=== PATIENT | female | born 1970 | race American Indian/Alaskan Native ===

== ENCOUNTER 2020-01-14 12:36 | Inpatient (IN) | payer OTHER ==
[2020-01-14 13:07] LABS: BASE EXCESS ARTERIAL 7 mmol/L ((-2)-(+3)); BICARBONATE,ARTERIAL 36.3 mmol/L (22-26); O2 DELIVERY DEVICE NASAL CANNULA; O2 SATURATION ARTERIAL 94 % (95-100); PO2 ARTERIAL 86 mmHg (70-100)
[2020-01-14 13:12] LABS: ALLEN TEST pos; O2 FLOW RATE 4; PCO2 ARTERIAL 78 mmHg (35-45)
--- NOTE | 2020-01-14 13:31 | EDM.PDOC ---
ED HPI GENERAL MEDICAL PROBLEM - General Chief Complaint: Respiratory Problem Stated Complaint: [facility] Time Seen by Provider: 01/14/20 12:45 Source of Information: Reports: Patient, EMS, EMS Notes Reviewed, RN, RN Notes Reviewed History Limitations: Reports: Respiratory Distress - History of Present Illness INITIAL COMMENTS - FREE TEXT/NARRATIVE: Patient presents to the ER per [facility] from [facility]. Patient presented to the [facility] today with increased shortness of breath with any kind of exertion or activity. Patient states she felt she had put on some weight. Records at [facility] confirmed she had gained approximately 40 pounds since August 2019. Upon arrival to the [facility] patient was ranging from 65 to 67% on room air, patient was put on nasal cannula at 2 L and was brought up into the 90s. Patient has a history of hyperthyroidism, diabetes type II, asthma, and hyperlipidemia. Patient is insulin-dependent. Today blood glucose was in the 50s, patient was given juice, remained in the 50s, given dextrose tablets. In route to the ER in the ambulance her blood glucose was still in the 50s, patient was given oral dextrose. Upon lab return patient's blood glucose here is 42, being given an amp of D50. Patient admits to having a cough recently along with the shortness of breath and generalized swelling. Patient states symptoms began progressively getting worse approximately 1 week ago. Patient denies history of any heart problems, UT, lung problems, or heart failure. Patient states she does not take a water pill. Patient denies fever, chills, headaches, nausea, vomiting, diarrhea. Main complaint is dyspnea with any kind of exertion and orthopnea. Denies chest pains or palpitations. Patient chews tobacco, but does not smoke cigarettes or drink alcohol. Patient was tested for COVID-[address] [facility] today, and this was negative. Onset: Gradual - Related Data Allergies Allergy/AdvReac Type Severity Reaction Status Date / Time No Known Allergies Allergy Verified 01/14/20 12:45 Home Meds: Home Meds metFORMIN HCl [Metformin HCl] 1,000 mg PO BID 03/18/15 [History] ARIPiprazole [Abilify] 15 mg PO DAILY 01/14/20 [History] Alogliptin Benzoate [Alogliptin] 25 mg PO DAILY 01/14/20 [History] Aspirin [Aspirin EC] 81 mg PO DAILY 01/14/20 [History] Cholecalciferol (Vitamin D3) [Vitamin D3] 25 mcg PO DAILY 01/14/20 [History] Escitalopram Oxalate 20 mg PO DAILY 01/14/20 [History] Gabapentin [Neurontin] 300 mg PO BEDTIME 01/14/20 [History] Insulin Detemir [Levemir Flextouch] 30 unit SQ BID 01/14/20 [History] Levothyroxine Sodium [Synthroid] 100 mcg PO ACBREAKFAST 01/14/20 [History] Melatonin 10 mg PO BEDTIME 01/14/20 [History] Pioglitazone [Actos] 30 mg PO DAILY 01/14/20 [History] Prazosin HCl [Prazosin] 2 mg PO BEDTIME 01/14/20 [History] Prazosin [Minpress] 1 mg PO BEDTIME 01/14/20 [History] Simvastatin 20 mg PO BEDTIME 01/14/20 [History] buPROPion HCL [Bupropion Xl] 150 mg PO DAILY 01/14/20 [History] traZODone HCl [Trazodone HCl] 100 mg PO BEDTIME 01/14/20 [History] Past Medical History HEENT History: Reports: Impaired Vision Cardiovascular History: Reports: Heart Failure, High Cholesterol Respiratory History: Reports: Asthma, Bronchitis, Recurrent 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: Polycystic Ovaries Musculoskeletal History: Reports: Back Pain, Chronic Neurological History: Reports: Neuropathy, Diabetic Psychiatric History: Reports: Depression, OCD, Other (See Below) Other Psychiatric History: insomnia Endocrine/Metabolic History: Reports: Diabetes, Type II, Hypothyroidism, Obesity/BMI 30+ Hematologic History: Reports: Other (See Below) Other Hematologic History: microcytic anemia Social & Family History - Tobacco Use Smoking Status *Q: Current Every Day Smoker Years of Tobacco use: 0 Packs/Tins Daily: 0 - Caffeine Use Caffeine Use: Reports: None - Recreational Drug Use Recreational Drug Use: No ED ROS GENERAL - Review of Systems Review Of Systems: Comprehensive ROS is negative, except as noted in HPI. ED EXAM, GENERAL - Physical Exam Exam: See Below Exam Limited By: Respiratory Distress General Appearance: Moderate Distress, Obese Eye Exam: Bilateral Eye: EOMI, Normal Inspection Ears: Normal External Exam, Hearing Grossly Normal Nose: Normal Inspection Throat/Mouth: Normal Inspection, Normal Voice, No Airway Compromise Head: Atraumatic, Normocephalic Neck: Normal Inspection Respiratory/Chest: Decreased Breath Sounds, Crackles Cardiovascular: Normal Peripheral Pulses, Other (Muffled heart tones) Peripheral Pulses: 2+: Radial (L), Radial (R) GI/Abdominal: Distended, Rigid, Abnormal Bowel Sounds (hypoactive, or difficult to auscultate) (Female) Exam: Deferred Rectal (Female) Exam: Deferred Back Exam: Normal Inspection, Decreased Range of Motion Extremities: Pedal Edema (+3 pitting), Limited Range of Motion Neurological: Alert, Oriented, Normal Cognition, No Motor/Sensory Deficits Psychiatric: Normal Affect, Normal Mood Skin Exam: Warm, Dry, Intact, Normal Color, No Rash Lymphatic: No Adenopathy Course - Vital Signs Last Recorded V/S: Last Vital Signs Temp 97.2 F 01/14/20 12:36 Pulse 81 01/14/20 12:36 Resp 22 H 01/14/20 12:36 BP 123/54 L 01/14/20 12:36 Pulse Ox 95 01/14/20 12:39 - Orders/Labs/Meds Orders: Active Orders 24 hr Category Date Time Status Admission Diagnosis [ADT] Stat ADT 01/14/20 14:56 Ordered Admission Status [Patient Status] [ADT] Routine ADT 01/14/20 14:56 Active EKG Documentation Completion [RC] STAT Care 01/14/20 12:39 Active Peripheral IV Care [RC] . DIRECTED Care 01/14/20 12:42 Active Chest Abdomen Pelvis w Cont [CT] Urgent Exams 01/14/20 13:42 Taken UA RFX TOMA AND CULT IF INDIC [URIN] Stat Lab 01/14/20 12:41 Ordered Sodium Chloride 0.9% [Saline Flush] Med 01/14/20 12:39 Active 10 ml FLUSH ASDIRECTED PRN Peripheral IV Insertion Adult [OM.PC] Stat Oth 01/14/20 12:39 Ordered Medication Orders Sodium Chloride (Saline Flush) 10 ml FLUSH ASDIRECTED PRN PRN Reason: Keep Vein Open Last Admin: 01/14/20 13:43 Dose: 10 ml Documented by: PINKY Labs: Laboratory Tests 01/14/20 01/14/20 01/14/20 Range/Units 12:53 12:53 12:53 PT 12.0 (9.0-12.0) SEC INR 1.3 H (0.9-1.2) D-Dimer, Quantitative 887 H (0-400) ng/mL ABG pH (7.35-7.45) ABG pCO2 (35-45) mmHg ABG pO2 (70-100) mmHg ABG HCO3 (22-26) mmol/L ABG O2 Saturation (95-100) % ABG Base Excess ((-2)-(+3)) mmol/L Anish Test O2 Delivery Device Oxygen Flow Rate Sodium 142 (136-145) mmol/L Potassium 4.1 (3.5-5.1) mmol/L Chloride 101 (98-107) mmol/L Carbon Dioxide 39 H (21-32) mmol/L Anion Gap 6.1 L (7-13) mEq/L BUN 16 (7-18) mg/dL Creatinine 0.78 (0.55-1.02) mg/dL Est Cr Clr Drug Dosing 68.24 mL/min Estimated GFR (MDRD) > 60 BUN/Creatinine Ratio 20.5 (No establ ref range) Glucose 42 L* (74-99) mg/dL POC Glucose (70-105) mg/dl Calcium 8.0 L (8.5-10.1) mg/dL Total Bilirubin 0.8 (0.2-1.0) mg/dL AST 13 L (15-37) U/L ALT 22 (14-59) U/L Alkaline Phosphatase 85 (46-116) U/L Troponin I < 0.017 (0.000-0.056) ng/mL B-Natriuretic Peptide 82 (0-100) pg/ml Total Protein 7.1 (6.4-8.2) g/dL Albumin 3.4 (3.4-5.0) g/dL Globulin 3.7 Albumin/Globulin Ratio 0.9 TSH, Ultra Sensitive 5.73 H (0.36-3.74) uIU/mL 01/14/20 01/14/20 Range/Units 13:00 14:40 PT (9.0-12.0) SEC INR (0.9-1.2) D-Dimer, Quantitative (0-400) ng/mL ABG pH 7.29 L (7.35-7.45) ABG pCO2 78 H* (35-45) mmHg ABG pO2 86 (70-100) mmHg ABG HCO3 36.3 H (22-26) mmol/L ABG O2 Saturation 94 L (95-100) % ABG Base Excess 7 H ((-2)-(+3)) mmol/L Anish Test pos O2 Delivery Device Nasal cannula Oxygen Flow Rate 4 Sodium (136-145) mmol/L Potassium (3.5-5.1) mmol/L Chloride (98-107) mmol/L Carbon Dioxide (21-32) mmol/L Anion Gap (7-13) mEq/L BUN (7-18) mg/dL Creatinine (0.55-1.02) mg/dL Est Cr Clr Drug Dosing mL/min Estimated GFR (MDRD) BUN/Creatinine Ratio (No establ ref range) Glucose (74-99) mg/dL POC Glucose 87 (70-105) mg/dl Calcium (8.5-10.1) mg/dL Total Bilirubin (0.2-1.0) mg/dL AST (15-37) U/L ALT (14-59) U/L Alkaline Phosphatase (46-116) U/L Troponin I (0.000-0.056) ng/mL B-Natriuretic Peptide (0-100) pg/ml Total Protein (6.4-8.2) g/dL Albumin (3.4-5.0) g/dL Globulin Albumin/Globulin Ratio TSH, Ultra Sensitive (0.36-3.74) uIU/mL Meds: Medications Generic Name Dose Route Start Last Admin Trade Name Freq PRN Reason Stop Dose Admin Sodium Chloride 10 ml 01/14/20 12:39 01/14/20 13:43 Saline Flush FLUSH 10 ml ASDIRECTED PRN Administration Keep Vein Open Discontinued Medications Generic Name Dose Route Start Last Admin Trade Name Freq PRN Reason Stop Dose Admin Dextrose/Water 50 ml 01/14/20 13:37 01/14/20 13:43 Dextrose 50% In Water IVPUSH 01/14/20 13:38 50 ml ONETIME ONE Administration Iopamidol 100 ml 01/14/20 13:43 01/14/20 14:35 Isovue-370 (76%) IVPUSH 01/14/20 13:44 100 ml ONETIME ONE Administration - Re-Assessments/Exams Free Text/Narrative Re-Assessment/Exam: 01/14/20 15:05 Dr. Pierce here to evaluate the patient. He agreed to admit the patient for observation. Departure - Departure Time of Disposition: 15:03 Disposition: Refer to Observation Condition: Fair Clinical Impression: Hypoxia Edema Qualifiers: Edema type: generalized Qualified Code(s): R60.1 - Generalized edema - Discharge Information *PRESCRIPTION DRUG MONITORING PROGRAM REVIEWED*: No *COPY OF PRESCRIPTION DRUG MONITORING REPORT IN PATIENT ALYSSA: No Forms: ED Department Discharge Sepsis Event Note (ED) - Evaluation Sepsis Screening Result: No Definite Risk - Focused Exam Vital Signs: Vital Signs Temp Pulse Resp BP Pulse Ox Pulse Ox 01/14/20 12:39 95 01/14/20 12:36 97.2 F 81 22 H 123/54 L 90 L - My Orders Last 24 Hours: My Active Orders 01/14/20 12:39 EKG Documentation Completion [RC] STAT Sodium Chloride 0.9% [Saline Flush] 10 ml FLUSH ASDIRECTED PRN Peripheral IV Insertion Adult [OM.PC] Stat 01/14/20 12:41 UA RFX TOMA AND CULT IF INDIC [URIN] Stat 01/14/20 12:42 Peripheral IV Care [RC] . DIRECTED 01/14/20 13:42 Chest Abdomen Pelvis w Cont [CT] Urgent 01/14/20 14:56 Admission Diagnosis [ADT] Stat Admission Status [Patient Status] [ADT] Routine - Assessment/Plan Last 24 Hours: My Active Orders 01/14/20 12:39 EKG Documentation Completion [RC] STAT Sodium Chloride 0.9% [Saline Flush] 10 ml FLUSH ASDIRECTED PRN Peripheral IV Insertion Adult [OM.PC] Stat 01/14/20 12:41 UA RFX TOMA AND CULT IF INDIC [URIN] Stat 01/14/20 12:42 Peripheral IV Care [RC] . DIRECTED 01/14/20 13:42 Chest Abdomen Pelvis w Cont [CT] Urgent 01/14/20 14:56 Admission Diagnosis [ADT] Stat Admission Status [Patient Status] [ADT] Routine
[2020-01-14 13:35] LABS: ANION GAP 6.1 mEq/L (7-13); CHLORIDE,CL 101 mmol/L (98-107); SODIUM,NA 142 mmol/L (136-145)
[2020-01-14] MEDS ORDERED: 50% Dextrose in Water 50 ML Syringe IVPUSH ONE (13:37)
[2020-01-14] MEDS: Sodium Chloride 0.9% 10 ML Syringe FLUSH PRN (13:43)
[2020-01-14] MEDS ORDERED: Iopamidol 755 Mg/ML 100 ML Bottle IVPUSH ONE (13:43)
[2020-01-14] MEDS ORDERED: 50% Dextrose in Water 50 ML Syringe IVPUSH PRN (15:20)
[2020-01-14] MEDS ORDERED: Ondansetron 4 MG Tab.DIS PO PRN (15:25)
[2020-01-14] MEDS ORDERED: Acetaminophen 325 MG Tab PO PRN (15:25)
--- NOTE | 2020-01-14 15:35 | PCM.HP ---
H&P History of Present Illness - General Date of Service: 01/14/20 Admit Problem/Dx: Admission Diagnosis/Problem Admission Diagnosis/Problem Edema Source of Information: Patient, Provider - History of Present Illness Initial Comments - Free Text/Narative: 50-year-old with a history of hypothyroidism, diabetes, depression. The patient presented to [facility]. She was noted to have about 40 pound weight gain in the past few months. She was noted to have massive edema, shortness of breath with activities. Denies chest pain. She was noted to have hypoglycemia, repeated hypoglycemia treatment was given. The patient was sent to the emergency room She denies current shortness of breath. No chest pain. No abdominal pain. She feels her abdomen is significantly larger than before. The swelling has been present for months, involving all extremities, trunk. - Related Data Allergies/Adverse Reactions: Allergies Allergy/AdvReac Type Severity Reaction Status Date / Time No Known Allergies Allergy Verified 01/14/20 12:45 Home Medications: Home Meds metFORMIN HCl [Metformin HCl] 1,000 mg PO BID 03/18/15 [History] ARIPiprazole [Abilify] 15 mg PO DAILY 01/14/20 [History] Alogliptin Benzoate [Alogliptin] 25 mg PO DAILY 01/14/20 [History] Aspirin [Aspirin EC] 81 mg PO DAILY 01/14/20 [History] Cholecalciferol (Vitamin D3) [Vitamin D3] 25 mcg PO DAILY 01/14/20 [History] Escitalopram Oxalate 20 mg PO DAILY 01/14/20 [History] Gabapentin [Neurontin] 300 mg PO BEDTIME 01/14/20 [History] Insulin Detemir [Levemir Flextouch] 30 unit SQ BID 01/14/20 [History] Levothyroxine Sodium [Synthroid] 100 mcg PO ACBREAKFAST 01/14/20 [History] Melatonin 10 mg PO BEDTIME 01/14/20 [History] Pioglitazone [Actos] 30 mg PO DAILY 01/14/20 [History] Prazosin HCl [Prazosin] 2 mg PO BEDTIME 01/14/20 [History] Prazosin [Minpress] 1 mg PO BEDTIME 01/14/20 [History] Simvastatin 20 mg PO BEDTIME 01/14/20 [History] buPROPion HCL [Bupropion Xl] 150 mg PO DAILY 01/14/20 [History] traZODone HCl [Trazodone HCl] 100 mg PO BEDTIME 01/14/20 [History] Past Medical History HEENT History: Reports: Impaired Vision Cardiovascular History: Reports: Heart Failure, High Cholesterol Respiratory History: Reports: Asthma, Bronchitis, Recurrent 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: Polycystic Ovaries Musculoskeletal History: Reports: Back Pain, Chronic Neurological History: Reports: Neuropathy, Diabetic Psychiatric History: Reports: Depression, OCD, Other (See Below) Other Psychiatric History: insomnia Endocrine/Metabolic History: Reports: Diabetes, Type II, Hypothyroidism, Obesity/BMI 30+ Hematologic History: Reports: Other (See Below) Other Hematologic History: microcytic anemia Social & Family History - Tobacco Use Smoking Status *Q: Current Every Day Smoker Years of Tobacco use: 0 Packs/Tins Daily: 0 - Caffeine Use Caffeine Use: Reports: None - Recreational Drug Use Recreational Drug Use: No H&P Review of Systems - Review of Systems: Review Of Systems: See Below General: Denies: Fever, Chills Pulmonary: Reports: Shortness of Breath. Denies: Wheezing, Pleuritic Chest Pain Cardiovascular: Reports: Dyspnea on Exertion, Edema. Denies: Chest Pain, Syncope Gastrointestinal: Denies: Abdominal Pain Psychiatric: Denies: Confusion Exam - Exam Exam: See Below - Vital Signs Vital Signs: Last Vital Signs Temp 97.2 F 01/14/20 12:36 Pulse 81 01/14/20 12:36 Resp 22 H 01/14/20 12:36 BP 123/54 L 01/14/20 12:36 Pulse Ox 95 01/14/20 12:39 Weight: 348 lb - Exam Quality Assessment: Supplemental Oxygen General: Alert, Oriented Neck: Supple Lungs: Normal Respiratory Effort, Decreased Breath Sounds Cardiovascular: Regular Rate, Regular Rhythm GI/Abdominal Exam: Normal Bowel Sounds, Soft, Other (Massively obese) Extremities: Pedal Edema Skin: Warm Neuro Extensive - Mental Status: Alert, Oriented x3, Normal Mood/Affect Psychiatric: Alert, Normal Affect, Normal Mood - Patient Data Lab Results Last 24 hrs: Laboratory Results - last 24 hr 01/14/20 01/14/20 01/14/20 Range/Units 12:53 12:53 12:53 PT 12.0 (9.0-12.0) SEC INR 1.3 H (0.9-1.2) D-Dimer, Quantitative 887 H (0-400) ng/mL ABG pH (7.35-7.45) ABG pCO2 (35-45) mmHg ABG pO2 (70-100) mmHg ABG HCO3 (22-26) mmol/L ABG O2 Saturation (95-100) % ABG Base Excess ((-2)-(+3)) mmol/L Anish Test O2 Delivery Device Oxygen Flow Rate Sodium 142 (136-145) mmol/L Potassium 4.1 (3.5-5.1) mmol/L Chloride 101 (98-107) mmol/L Carbon Dioxide 39 H (21-32) mmol/L Anion Gap 6.1 L (7-13) mEq/L BUN 16 (7-18) mg/dL Creatinine 0.78 (0.55-1.02) mg/dL Est Cr Clr Drug Dosing 68.24 mL/min Estimated GFR (MDRD) > 60 BUN/Creatinine Ratio 20.5 (No establ ref range) Glucose 42 L* (74-99) mg/dL POC Glucose (70-105) mg/dl Calcium 8.0 L (8.5-10.1) mg/dL Total Bilirubin 0.8 (0.2-1.0) mg/dL AST 13 L (15-37) U/L ALT 22 (14-59) U/L Alkaline Phosphatase 85 (46-116) U/L Troponin I < 0.017 (0.000-0.056) ng/mL B-Natriuretic Peptide 82 (0-100) pg/ml Total Protein 7.1 (6.4-8.2) g/dL Albumin 3.4 (3.4-5.0) g/dL Globulin 3.7 Albumin/Globulin Ratio 0.9 TSH, Ultra Sensitive 5.73 H (0.36-3.74) uIU/mL 01/14/20 01/14/20 Range/Units 13:00 14:40 PT (9.0-12.0) SEC INR (0.9-1.2) D-Dimer, Quantitative (0-400) ng/mL ABG pH 7.29 L (7.35-7.45) ABG pCO2 78 H* (35-45) mmHg ABG pO2 86 (70-100) mmHg ABG HCO3 36.3 H (22-26) mmol/L ABG O2 Saturation 94 L (95-100) % ABG Base Excess 7 H ((-2)-(+3)) mmol/L Anish Test pos O2 Delivery Device Nasal cannula Oxygen Flow Rate 4 Sodium (136-145) mmol/L Potassium (3.5-5.1) mmol/L Chloride (98-107) mmol/L Carbon Dioxide (21-32) mmol/L Anion Gap (7-13) mEq/L BUN (7-18) mg/dL Creatinine (0.55-1.02) mg/dL Est Cr Clr Drug Dosing mL/min Estimated GFR (MDRD) BUN/Creatinine Ratio (No establ ref range) Glucose (74-99) mg/dL POC Glucose 87 (70-105) mg/dl Calcium (8.5-10.1) mg/dL Total Bilirubin (0.2-1.0) mg/dL AST (15-37) U/L ALT (14-59) U/L Alkaline Phosphatase (46-116) U/L Troponin I (0.000-0.056) ng/mL B-Natriuretic Peptide (0-100) pg/ml Total Protein (6.4-8.2) g/dL Albumin (3.4-5.0) g/dL Globulin Albumin/Globulin Ratio TSH, Ultra Sensitive (0.36-3.74) uIU/mL Result Diagrams: 01/14/20 12:53 - Problem List (1) Acute hypercapnic respiratory failure SNOMED Code(s): 993081813 ICD Code: J96.02 - ACUTE RESPIRATORY FAILURE WITH HYPERCAPNIA Status: Acute Current Visit: Yes (2) Diabetes SNOMED Code(s): 70776060 ICD Code: E11.9 - TYPE 2 DIABETES MELLITUS WITHOUT COMPLICATIONS Status: A cute Current Visit: Yes (3) Hypothyroidism SNOMED Code(s): 28150820 ICD Code: E03.9 - HYPOTHYROIDISM, UNSPECIFIED Status: Acute Current Visit: Yes (4) Depression SNOMED Code(s): 53542670 ICD Code: F32.9 - MAJOR DEPRESSIVE DISORDER, SINGLE EPISODE, UNSPECIFIED Status: Acute Current Visit: Yes (5) Morbid obesity SNOMED Code(s): 089736861 ICD Code: E66.01 - MORBID (SEVERE) OBESITY DUE TO EXCESS CALORIES Status: Acute Current Visit: Yes (6) Edema SNOMED Code(s): 015202453, 445762111 ICD Code: R60.9 - EDEMA, UNSPECIFIED Status: Acute Current Visit: No Qualifiers: Edema type: generalized Qualified Code(s): R60.1 - Generalized edema (7) Hypoxia SNOMED Code(s): 740767285 ICD Code: R09.02 - HYPOXEMIA Status: Acute Current Visit: No Problem List Initiated/Reviewed/Updated: Yes Orders Last 24hrs: Active Orders 24 hr Category Date Time Status Admission Diagnosis [ADT] Stat ADT 01/14/20 14:56 Ordered Admission Status [Patient Status] [ADT] Routine ADT 01/14/20 14:56 Active Antiembolic Devices [RC] PER UNIT ROUTINE Care 01/14/20 15:26 Ordered Blood Glucose Check, Bedside [RC] UPON Care 01/14/20 15:29 Ordered EKG Documentation Completion [RC] STAT Care 01/14/20 12:39 Active Glucose [Blood Glucose Check, Bedside] [RC] QIDACANDBED Care 01/14/20 15:19 Ordered Oxygen Therapy [RC] PRN Care 01/14/20 15:26 Ordered Peripheral IV Care [RC] . DIRECTED Care 01/14/20 12:42 Active RT BiPAP/CPAP [RC] ASDIRECTED Care 01/14/20 15:23 Ordered Up With Assistance [RC] ASDIRECTED Care 01/14/20 15:25 Ordered VTE/DVT Education [RC] PER UNIT ROUTINE Care 01/14/20 15:26 Ordered Vital Signs [RC] Q4H Care 01/14/20 15:26 Ordered Consistent Carbohydrate Diet [DIET] Diet 01/14/20 Dinner Ordered Chest Abdomen Pelvis w Cont [CT] Urgent Exams 01/14/20 13:42 Taken Echo Comp wo Cont [US] Routine Exams 01/15/20 08:00 Ordered BASIC METABOLIC PANEL,BMP [CHEM] AM Lab 01/15/20 05:15 Ordered CBC WITH AUTO DIFF [HEME] AM Lab 01/15/20 05:15 Ordered UA RFX TOMA AND CULT IF INDIC [URIN] Stat Lab 01/14/20 12:41 Ordered ARIPiprazole [Abilify] Med 01/15/20 09:00 Ordered 15 mg PO DAILY Acetaminophen [Tylenol] Med 01/14/20 15:25 Ordered 650 mg PO Q4H PRN Aspirin [Halfprin] Med 01/15/20 09:00 Ordered 81 mg PO DAILY Dextrose 50% in Water Med 01/14/20 15:20 Ordered 25 ml IVPUSH Q1H PRN Escitalopram Oxalate [Escitalopram Oxalate] Med 01/15/20 09:00 Ordered 20 mg PO DAILY Furosemide [Lasix] Med 01/14/20 15:30 Ordered 20 mg IVPUSH BID Gabapentin Med 01/14/20 21:00 Ordered 300 mg PO BEDTIME Heparin Sodium Med 01/14/20 22:00 Ordered 5,000 units SUBCUT Q8HR Insulin Glarg,Human.Rec.Analog [LantUS] Med 01/15/20 09:00 Ordered 20 unit SUBCUT BID Insulin Lispro [HumaLOG] Med 01/14/20 16:00 Ordered See Protocol SUBCUT ACBED Levothyroxine [Synthroid] Med 01/15/20 06:00 Ordered 125 mcg PO ACBREAKFAST Melatonin Med 01/14/20 15:27 Ordered 6 mg PO BEDTIME PRN Melatonin [Melatonin] Med 01/14/20 21:00 Ordered 10 mg PO BEDTIME Ondansetron [Zofran ODT] Med 01/14/20 15:25 Ordered 4 mg PO Q4H PRN Prazosin [Minpress] Med 01/14/20 21:00 Ordered 1 mg PO BEDTIME Simvastatin [Simvastatin] Med 01/14/20 21:00 Ordered 20 mg PO BEDTIME Sodium Chloride 0.9% [Saline Flush] Med 01/14/20 12:39 Active 10 ml FLUSH ASDIRECTED PRN buPROPion [Wellbutrin XL] Med 01/15/20 09:00 Ordered 150 mg PO DAILY traZODone HCl Med 01/14/20 21:00 Ordered 100 mg PO BEDTIME Antiembolic Hose [OM.PC] Per Unit Routine Oth 01/14/20 15:26 Ordered Peripheral IV Insertion Adult [OM.PC] Stat Oth 01/14/20 12:39 Ordered Resuscitation Status Routine Resus Stat 01/14/20 15:25 Ordered Medication Orders Acetaminophen (Tylenol) 650 mg PO Q4H PRN PRN Reason: Pain (Mild 1-3)/fever Aspirin (Halfprin) 81 mg PO DAILY [place] Bupropion HCl (Wellbutrin Xl) 150 mg PO DAILY [place]INGOTN Dextrose/Water (Dextrose 50% In Water) 25 ml IVPUSH Q1H PRN PRN Reason: blood sugar <70 Furosemide (Lasix) 20 mg IVPUSH BID [place] Heparin Sodium (Porcine) (Heparin Sodium) 5,000 units SUBCUT Q8HR REMINGTNO Insulin Glargine (Lantus) 20 unit SUBCUT BID [place]INTGON Insulin Human Lispro (Humalog) 0 unit SUBCUT ACBED [place]; Protocol Levothyroxine Sodium (Synthroid) 125 mcg PO ACBREAKFAST [place] Melatonin (Melatonin) 6 mg PO BEDTIME PRN PRN Reason: Sleep Non-Formulary Medication (Aripiprazole [Abilify]) 15 mg PO DAILY [place] Non-Formulary Medication (Escitalopram Oxalate [Escitalopram Oxalate]) 20 mg PO DAILY [place] Non-Formulary Medication (Gabapentin) 300 mg PO BEDTIME [place] Non-Formulary Medication (Melatonin [Melatonin]) 10 mg PO BEDTIME [place] Non-Formulary Medication (Prazosin [Minpress]) 1 mg PO BEDTIME [place] Non-Formulary Medication (Simvastatin [Simvastatin]) 20 mg PO BEDTIME [place] Non-Formulary Medication (Trazodone Hcl) 100 mg PO BEDTIME [place] Ondansetron HCl (Zofran Odt) 4 mg PO Q4H PRN PRN Reason: nausea, able to take PO Sodium Chloride (Saline Flush) 10 ml FLUSH ASDIRECTED PRN PRN Reason: Keep Vein Open Last Admin: 01/14/20 13:43 Dose: 10 ml Documented by: PINKY Assessment/Plan Comment:: 50-year-old with a history of hypothyroidism, diabetes, depression. The patient presented to [facility]. She was noted to have about 40 pound weight gain in the past few months. She was noted to have massive edema, shortness of breath with activities. Denies chest pain. She was noted to have hypoglycemia, repeated hypoglycemia treatment was given. The patient was sent to the emergency room She denies current shortness of breath. No chest pain. No abdominal pain. She feels her abdomen is significantly larger than before. The swelling has been present for months, involving all extremities, trunk. Massive edema involving lower extremities, trunk Well start diuretics Start IV Lasix twice a day Obtain echocardiogram in the morning CT chest and abdomen is pending Diabetes Hypoglycemia An amp of D50 given in the ER Follow blood sugars Hold Levemir now and resume with decreased dose from tomorrow morning Hold metformin, pioglitazone Supplemental insulin and hypoglycemia protocol as needed Hypothyroidism Uncontrolled Increase thyroid medication, increase levothyroxine from 100-125 g daily Acute hypoxemic, hypercarbic respiratory failure Likely secondary to morbid obesity, fluid overload Supplement oxygen as needed BiPAP for now Depression Continue Abilify, bupropion, escitalopram, trazodone DVT prophylaxis with subcutaneous heparin
--- NOTE | 2020-01-14 15:47 | CT ---
EXAMINATION: Chest Abdomen Pelvis w Cont SEX: Female AGE: 50 years CLINICAL HISTORY: 50-year-old 348 pound diabetic female with "fluid overload". BNP 82. Serum D-dimer 887. Scan technique: Volume acquisition of data from the chest, abdomen and pelvis obtained without oral contrast but during the intravenous infusion of 100 cc nonionic Isovue 370 contrast at 5 cc/s via injector (CT PE protocol) while patient was lying supine on the Siemens multislice scanner [place], [place]. All data archived in the PACS system for storage, reformatting axial/sagittal/coronal planes and study. Interpretation: Abnormal. 1. Diminutive thorax (relative to body habitus). Small bibasilar, dependent, subpulmonic pleural effusions. 2. Large heart. Small pericardial effusion. Mild pulmonary vascular congestion with cephalization of flow but no current signs of alveolar edema. 3. No lung mass or significant hilar/mediastinal lymphadenopathy. No focal lobar infiltrate or atelectasis. 4. No intraluminal filling defect (thrombus) identified in the pulmonary artery circulation. No focal oligemia. 5. Abnormal (extensive) subcutaneous edema i.e. anasarca. 6. Cholecystectomy clip RUQ. Large liver. No intrahepatic mass or dilatation intra/extrahepatic biliary ducts. Stomach, spleen, pancreas and adrenal glands unremarkable. Subtle "dirty" mesenteric fat. No ascites. 7. No pelvic or abdominal mass lesion, mesenteric or retroperitoneal lymphadenopathy, signs of mechanical bowel obstruction, or free intraperitoneal air. Normal midline uterus. No fluid dependent cul-de-sac. 8. Symmetric small but normal reniform size/configuration of the kidneys. No renal cortical mass, nephrolithiasis or signs of obstructive uropathy. Normal midline urinary bladder. 9. Normal caliber aortoiliac vessels. Lordotic lumbar spine unremarkable. CONCLUSION: Large heart; pulmonary vascular engorgement; bibasal pleural effusions; enlarged liver; and, anasarca i.e all indications of probable heart failure. Clinical? Cholecystectomy. No current evidence of pulmonary embolism or infarct. No sign of primary or metastatic malignancy. No mechanical bowel obstruction.
[2020-01-14] MEDS: Furosemide 40 MG/4 ML VIAL IVPUSH SCH (16:39)
[2020-01-14] MEDS ORDERED: Insulin Lispro 100 Units/ML 3 ML Vial SUBCUT SCH (18:00)
[2020-01-14] MEDS ORDERED: Melatonin 3 MG Tab PO PRN (21:00)
[2020-01-14] MEDS ORDERED: traZODone 50 MG Tab PO SCH (21:00)
[2020-01-14] MEDS ORDERED: Simvastatin 10 MG Tab PO SCH (21:00)
[2020-01-14] MEDS ORDERED: Melatonin 3 MG Tab PO SCH (21:00)
[2020-01-14] MEDS ORDERED: Insulin Glarg,Human.Rec.Analog 100 Unit/ML SUBCUT SCH ×2 (21:00)
[2020-01-14] MEDS ORDERED: Gabapentin 300 MG Cap PO SCH (21:00)
[2020-01-14] MEDS ORDERED: GABAPENTIN 300 MG PO SCH (21:00)
[2020-01-14] MEDS: LEVEMIR SUBCUT SCH (21:33)
[2020-01-14] MEDS: TRAZODONE 100 MG PO SCH (21:35)
[2020-01-14] MEDS: MELATONIN 10 MG PO SCH (21:35)
[2020-01-14] MEDS: GABAPENTIN 300 MG PO SCH (21:36)
[2020-01-14] MEDS: SIMVASTATIN 20 MG PO SCH (21:37)
[2020-01-14] MEDS: NOVOLOG SUBCUT SCH (21:38)
[2020-01-14] MEDS: Heparin Sodium 5,000 Units/ML Vial SUBCUT SCH (21:53)
[2020-01-15] MEDS: Heparin Sodium 5,000 Units/ML Vial SUBCUT SCH ×3 (06:05→21:26)
[2020-01-15] MEDS: Levothyroxine 125 MCG Tab PO SCH (06:05)
[2020-01-15 07:07] LABS: ANION GAP 3.5 mEq/L (7-13); CHLORIDE,CL 101 mmol/L (98-107); SODIUM,NA 141 mmol/L (136-145)
[2020-01-15] MEDS: NOVOLOG SUBCUT SCH ×4 (08:18→21:18)
[2020-01-15] MEDS: Aspirin 81 MG Tab.EC PO SCH (08:26)
[2020-01-15] MEDS: ESCITALOPRAM 20 MG PO SCH (08:27)
[2020-01-15] MEDS: buPROPion 150 MG Tab.ER PO SCH (08:28)
[2020-01-15] MEDS: Furosemide 40 MG/4 ML VIAL IVPUSH SCH ×2 (08:29→14:26)
[2020-01-15] MEDS: Sodium Chloride 0.9% 10 ML Syringe FLUSH PRN ×2 (08:29→14:26)
[2020-01-15] MEDS: LEVEMIR SUBCUT SCH ×2 (08:30→21:21)
[2020-01-15] MEDS ORDERED: Insulin Glarg,Human.Rec.Analog 100 Unit/ML SUBCUT SCH (09:00)
[2020-01-15] MEDS ORDERED: ESCITALOPRAM 20 MG PO SCH (09:00)
[2020-01-15] MEDS ORDERED: buPROPion 150 MG Tab.ER PO SCH (09:00)
[2020-01-15] MEDS ORDERED: Escitalopram 10 MG Tab PO SCH (09:00)
[2020-01-15] MEDS ORDERED: Aspirin 81 MG Tab.EC PO SCH (09:00)
--- NOTE | 2020-01-15 10:55 | PN ---
DATE: 01/15/2020 HISTORY OF PRESENT ILLNESS: Ms. Sue Storey is a 50-year-old female with medical history significant for hypertension, type 2 diabetes mellitus, hypothyroidism, admitted with acute respiratory failure with hypoxia, hypercapnia, and noted to be in acute congestive heart failure exacerbation with generalized anasarca. For the last 24 hours, the patient was started on IV Lasix, after which her symptoms seems to be slightly improved. She continued to be on nasal cannula oxygen. She continues to have dyspnea on exertion. No chest pain. No abdominal pain. No nausea. No vomiting. No diarrhea. REVIEW OF SYSTEMS: Cardiovascular, respiratory, gastrointestinal, neurology, constitutional were all evaluated and were negative except for the above-said notes. PHYSICAL EXAMINATION: Vital Signs: Temperature of 97.7, pulse of 72, blood pressure 137/69, respiratory rate of 22, saturating at 97% on 3 L of oxygen. General Appearance: The patient is well oriented to time, place, and person. Follows commands spontaneously. Cardiovascular System: S1, S2 heard with normal intensity. No gallops. Respiratory System: Mild crepitations at the base. No wheeze. Abdomen: Soft. Bowel sounds positive. Nontender. No rigidity. Extremities: 2+ edema noted in bilateral lower extremities. MEDICATIONS: Reviewed. Continue with aspirin 81 mg daily, Wellbutrin 150 mg daily, Lasix changed to 40 mg IV twice a day, levothyroxine 125 mcg daily, simvastatin 20 mg daily, Levemir twice a day. LABORATORY DATA: Sodium 141, potassium 4.5, chloride 41, BUN 13, creatinine 0.6. ASSESSMENT: 1. Acute congestive heart failure. 2. Acute hypoxic hypercapnic respiratory failure. 3. Hypothyroidism. 4. Diabetes mellitus. PLAN: 1. Acute congestive heart failure. We will order for a 2D echocardiogram to determine if it is systolic versus diastolic dysfunction. The patient was started on Lasix 20 q.12 hourly. We will increase the dose to 40 mg q.12 hourly for better diuresis. We will closely monitor the patient. Try to avoid any hypotensive episodes. 2. Acute respiratory failure. The patient was noted to have acute hypoxic hypercapnic respiratory failure mainly from pulmonary venous congestion, improving with dialysis. Continue supplemental oxygen to maintain a saturation 95%. 3. Type 2 diabetes mellitus. The patient was noted to be hypoglycemic, requiring D50. We will use insulin as needed. Hold her metformin and pioglitazone. Check her fingersticks with each meal. Have her on correction dose insulin if needed. Avoid any hypoglycemic episodes. 4. DVT prophylaxis. We will have her on Lovenox for DVT prophylaxis. [facility] /[id number]
[2020-01-15] MEDS: GABAPENTIN 300 MG PO SCH (21:00)
[2020-01-15] MEDS: SIMVASTATIN 20 MG PO SCH (21:01)
[2020-01-15] MEDS: TRAZODONE 100 MG PO SCH (21:02)
[2020-01-15] MEDS: MELATONIN 10 MG PO SCH (21:04)
[2020-01-16] MEDS: Levothyroxine 125 MCG Tab PO SCH (06:22)
[2020-01-16] MEDS: Heparin Sodium 5,000 Units/ML Vial SUBCUT SCH ×3 (06:23→22:04)
[2020-01-16 07:09] LABS: ANION GAP 2.3 mEq/L (7-13); CHLORIDE,CL 99 mmol/L (98-107); SODIUM,NA 140 mmol/L (136-145)
[2020-01-16] MEDS: Furosemide 40 MG/4 ML VIAL IVPUSH SCH ×3 (08:27→22:09)
[2020-01-16] MEDS: NOVOLOG SUBCUT SCH ×4 (08:27→22:07)
[2020-01-16] MEDS: buPROPion 150 MG Tab.ER PO SCH (08:28)
[2020-01-16] MEDS: Aspirin 81 MG Tab.EC PO SCH (08:28)
[2020-01-16] MEDS: ESCITALOPRAM 20 MG PO SCH (08:29)
[2020-01-16] MEDS: LEVEMIR SUBCUT SCH ×2 (08:30→22:02)
[2020-01-16] MEDS ORDERED: Lactulose Soln 10 GM/15 ML 30 ML UD Cup PO PRN (09:47)
--- NOTE | 2020-01-16 09:54 | PCM.PN ---
- General Info Date of Service: 01/16/20 Subjective Update: feeling better moderate sob, improved since admission, stilll on oxygen, no associated cp good uo but wght did not change since yesterday - Review of Systems General: Denies: Fever, Weakness Pulmonary: Reports: Shortness of Breath Cardiovascular: Denies: Chest Pain, Palpitations Gastrointestinal: Denies: Abdominal Pain Genitourinary: Denies: Dysuria - Patient Data Vitals - Most Recent: Last Vital Signs Temp 98.1 F 01/16/20 07:51 Pulse 79 01/16/20 07:51 Resp 18 01/16/20 07:51 BP 128/49 L 01/16/20 07:51 Pulse Ox 90 L 01/16/20 07:51 Weight - Most Recent: 350 lb 11.2 oz I&O - Last 24 Hours: Intake & Output 01/15/20 01/16/20 01/16/20 22:59 06:59 14:59 Intake Total 500 420 230 Output Total 1200 Balance -700 420 230 Lab Results Last 24 Hours: Laboratory Results - last 24 hr 01/15/20 01/15/20 01/15/20 Range/Units 10:59 17:08 21:10 WBC (5.0-10.0) 10^3/uL RBC (4.2-5.4) 10^6/uL Hgb (12.0-16.0) g/dL Hct (37.0-47.0) % MCV (80-100) fL MCH (27.0-34.0) pg MCHC (33.0-35.0) g/dL Plt Count (150-450) 10^3/uL Sodium (136-145) mmol/L Potassium (3.5-5.1) mmol/L Chloride (98-107) mmol/L Carbon Dioxide (21-32) mmol/L Anion Gap (7-13) mEq/L BUN (7-18) mg/dL Creatinine (0.55-1.02) mg/dL Est Cr Clr Drug Dosing mL/min Estimated GFR (MDRD) Glucose (74-99) mg/dL POC Glucose 181 H 155 H 153 H (70-105) mg/dl Calcium (8.5-10.1) mg/dL Magnesium (1.8-2.4) mg/dL B-Natriuretic Peptide (0-100) pg/ml 01/16/20 01/16/20 01/16/20 Range/Units 06:31 06:31 07:33 WBC 6.5 (5.0-10.0) 10^3/uL RBC 4.64 (4.2-5.4) 10^6/uL Hgb 12.2 (12.0-16.0) g/dL Hct 42.2 (37.0-47.0) % MCV 90.9 (80-100) fL MCH 26.3 L (27.0-34.0) pg MCHC 28.9 L (33.0-35.0) g/dL Plt Count 168 (150-450) 10^3/uL Sodium 140 (136-145) mmol/L Potassium 4.3 (3.5-5.1) mmol/L Chloride 99 (98-107) mmol/L Carbon Dioxide 43 H* (21-32) mmol/L Anion Gap 2.3 L (7-13) mEq/L BUN 13 (7-18) mg/dL Creatinine 0.73 (0.55-1.02) mg/dL Est Cr Clr Drug Dosing 72.92 mL/min Estimated GFR (MDRD) > 60 Glucose 125 H (74-99) mg/dL POC Glucose 126 H (70-105) mg/dl Calcium 8.0 L (8.5-10.1) mg/dL Magnesium 1.9 (1.8-2.4) mg/dL B-Natriuretic Peptide 271 H (0-100) pg/ml Charli Results Last 24 Hours: Microbiology 01/14/20 17:21 Urine Culture - Final Urine, Clean Catch Escherichia Coli Med Orders - Current: Current Medications Acetaminophen (Tylenol) 650 mg PO Q4H PRN PRN Reason: Pain (Mild 1-3)/fever Aspirin (Halfprin) 81 mg PO DAILY [facility] Last Admin: 01/16/20 08:28 Dose: 81 mg Documented by: Bupropion HCl (Wellbutrin Xl) 150 mg PO DAILY [facility] Last Admin: 01/16/20 08:28 Dose: 150 mg Documented by: Dextrose/Water (Dextrose 50% In Water) 25 ml IVPUSH Q1H PRN PRN Reason: blood sugar <70 Furosemide (Lasix) 40 mg IVPUSH Q8H [facility] Heparin Sodium (Porcine) (Heparin Sodium) 5,000 units SUBCUT Q8HR [facility] Last Admin: 01/16/20 06:23 Dose: 5,000 units Documented by: Lactulose (Cephulac) 20 gm PO BID PRN PRN Reason: Constipation Levothyroxine Sodium (Levothyroxine) 125 mcg PO ACBREAKFAST [facility] Last Admin: 01/16/20 06:22 Dose: 125 mcg Documented by: (Aripiprazole [ Abilify] 15 Mg) Own Med* 15 mg PO DAILY [facility] Last Admin: 01/16/20 08:29 Dose: 15 mg Documented by: (Prazosin [Minpress] (1 Mg) Own Med*) 1 mg PO BEDTIME [facility] Last Admin: 01/15/20 21:03 Dose: 1 mg Documented by: Novolog Own Med* 0 each SUBCUT WITHMEALSANDBED [facility]; Protocol Last Admin: 01/16/20 08:27 Dose: Not Given Documented by: Simvastatin 20mg Own (Med*) 0 each PO BEDTIME [facility] Last Admin: 01/15/20 21:01 Dose: 1 each Documented by: Trazodone 100mg Own (Med*) 0 each PO BEDTIME [facility] Last Admin: 01/15/20 21:02 Dose: 1 each Documented by: Levemir Pen Own Med (*) 0 each SUBCUT BID [facility] Last Admin: 01/16/20 08:30 Dose: 1 each Documented by: Escitalopram 20mg (Own Med*) 0 each PO DAILY [facility] Last Admin: 01/16/20 08:29 Dose: 1 each Documented by: Gabapentin 300mg (Own Med*) 0 each PO BEDTIME [facility] Last Admin: 01/15/20 21:00 Dose: 0.5 each Documented by: Ondansetron HCl (Zofran Odt) 4 mg PO Q4H PRN PRN Reason: nausea, able to take PO Melatonin 10mg Own (Med*) 0 each PO BEDTIME [facility] Last Admin: 01/15/20 21:04 Dose: 1 each Documented by: Senna/Docusate Sodium (Senna Plus) 1 tab PO BID [facility] Sodium Chloride (Saline Flush) 10 ml FLUSH ASDIRECTED PRN PRN Reason: Keep Vein Open Last Admin: 01/15/20 14:26 Dose: 10 ml Documented by: Discontinued Medications Aspirin (Halfprin) 81 mg PO DAILY [facility] Bupropion HCl (Wellbutrin Xl) 150 mg PO DAILY [facility] Dextrose/Water (Dextrose 50% In Water) 50 ml IVPUSH ONETIME ONE Stop: 01/14/20 13:38 Last Admin: 01/14/20 13:43 Dose: 50 ml Documented by: Escitalopram Oxalate (Lexapro) 20 mg PO DAILY [facility] Furosemide (Lasix) 20 mg IVPUSH BIDDIURETIC [facility] Last Admin: 01/15/20 08:29 Dose: 20 mg Documented by: Furosemide (Lasix) 40 mg IVPUSH BIDDIURETIC [facility] Last Admin: 01/16/20 08:27 Dose: 40 mg Documented by: Gabapentin (Neurontin) 300 mg PO BEDTIME [facility] Insulin Glargine (Lantus) 30 unit SUBCUT BID [facility] Insulin Glargine (Lantus) 20 unit SUBCUT BID [facility] Insulin Glargine (Lantus) 10 unit SUBCUT BID [facility] Insulin Human Lispro (Humalog) 0 unit SUBCUT WITHMEALSANDBED [facility]; Protocol Last Admin: 01/14/20 18:35 Dose: Not Given Documented by: Iopamidol (Isovue-370 (76%)) 100 ml IVPUSH ONETIME ONE Stop: 01/14/20 13:44 Last Admin: 01/14/20 14:35 Dose: 100 ml Documented by: Melatonin (Melatonin) 10.5 mg PO BEDTIME [facility] Melatonin (Melatonin) 6 mg PO BEDTIME PRN PRN Reason: Sleep Escitalopram 20mg (Own Med) 0 each PO DAILY [facility] Gabapentin 300mg (Own Med*) 0 each PO BEDTIME [facility] Simvastatin (Zocor) 20 mg PO BEDTIME [facility] Trazodone HCl (Trazodone) 100 mg PO BEDTIME [facility] - Exam Quality Assessment: Supplemental Oxygen General: Alert, Oriented Neck: Supple Lungs: Normal Respiratory Effort, Decreased Breath Sounds Cardiovascular: Regular Rate, Regular Rhythm GI/Abdominal Exam: Normal Bowel Sounds, Soft, Non-Tender Extremities: Pedal Edema, Other (Massive edema) Psy/Mental Status: Alert, Normal Affect, Normal Mood Sepsis Event Note - Evaluation Sepsis Screening Result: No Definite Risk - Focused Exam Vital Signs: Vital Signs Temp Pulse Resp BP BP Pulse Ox 01/16/20 07:51 98.1 F 79 18 128/49 L 90 L 01/15/20 23:28 98.2 F 80 20 136/64 95 Date Exam was Performed: 01/16/20 Time Exam was Performed: 09:54 - Problem List & Annotations (1) Acute hypercapnic respiratory failure SNOMED Code(s): 762711682 Code(s): J96.02 - ACUTE RESPIRATORY FAILURE WITH HYPERCAPNIA Status: Acute Current Visit: Yes (2) Diabetes SNOMED Code(s): 70513573 Code(s): E11.9 - TYPE 2 DIABETES MELLITUS WITHOUT COMPLICATIONS Status: Acute Current Visit: Yes (3) Hypothyroidism SNOMED Code(s): 88774157 Code(s): E03.9 - HYPOTHYROIDISM, UNSPECIFIED Status: Acute Current Visit: Yes (4) Depression SNOMED Code(s): 77216246 Code(s): F32.9 - MAJOR DEPRESSIVE DISORDER, SINGLE EPISODE, UNSPECIFIED Status: Acute Current Visit: Yes (5) Morbid obesity SNOMED Code(s): 473481251 Code(s): E66.01 - MORBID (SEVERE) OBESITY DUE TO EXCESS CALORIES Status: Acute Current Visit: Yes (6) Edema SNOMED Code(s): 309802297, 375044167 Code(s): R60.9 - EDEMA, UNSPECIFIED Status: Acute Current Visit: No Qualifiers: Edema type: generalized Qualified Code(s): R60.1 - Generalized edema (7) Hypoxia SNOMED Code(s): 371496063 Code(s): R09.02 - HYPOXEMIA Status: Acute Current Visit: No - Problem List Review Problem List Initiated/Reviewed/Updated: Yes - My Orders Last 24 Hours: My Active Orders 01/15/20 09:00 ARIPiprazole [Abilify] 15 mg PO DAILY Aspirin [Halfprin] 81 mg PO DAILY Non-Formulary Medication [NF Drug] 0 each PO DAILY buPROPion [Wellbutrin XL] 150 mg PO DAILY 01/16/20 09:47 Lactulose [Cephulac] 20 gm PO BID PRN 01/16/20 10:00 Docusate Sodium/Sennosides [Senna Plus] 1 tab PO BID 01/16/20 14:00 Furosemide [Lasix] 40 mg IVPUSH Q8H cephALEXin [Keflex] 500 mg PO TID - Plan Plan:: 50-year-old with a history of hypothyroidism, diabetes, depression. The patient presented to [facility]. She was noted to have about 40 pound weight gain in the past few months. She was noted to have massive edema, shortness of breath with activities. Denies chest pain. She was noted to have hypoglycemia, repeated hypoglycemia treatment was given. The patient was sent to the emergency room Massive edema involving lower extremities, trunk Started Lasix, weight did not change significantly Increase Lasix dose Could not obtain echocardiogram due to size On CT the patient was noted to have cardiomegaly This is likely acute on chronic diastolic congestive heart failure Diabetes Hypoglycemia An amp of D50 given in the ER Follow blood sugars Resumed Levemir Hold metformin, pioglitazone Supplemental insulin and hypoglycemia protocol as needed Hypothyroidism Uncontrolled Increase thyroid medication, increase levothyroxine from 100 to 125 g daily Acute hypoxemic, hypercarbic respiratory failure Likely secondary to morbid obesity, fluid overload Supplement oxygen as needed Taper oxygen as possible Stop BiPAP Consider sleep apnea evaluation as outpatient Depression Continue Abilify, bupropion, escitalopram, trazodone DVT prophylaxis with subcutaneous heparin
[2020-01-16] MEDS: Potassium Chloride 10 MEQ Tab.ER PO SCH (10:27)
[2020-01-16] MEDS: Cephalexin 500 MG Cap PO SCH ×3 (10:28→21:44)
[2020-01-16] MEDS: SIMVASTATIN 20 MG PO SCH (21:44)
[2020-01-16] MEDS: TRAZODONE 100 MG PO SCH (21:45)
[2020-01-16] MEDS: MELATONIN 10 MG PO SCH (21:46)
[2020-01-16] MEDS: GABAPENTIN 300 MG PO SCH (21:53)
[2020-01-16] MEDS: Sodium Chloride 0.9% 10 ML Syringe FLUSH PRN ×2 (22:09→22:16)
[2020-01-17] MEDS: Heparin Sodium 5,000 Units/ML Vial SUBCUT SCH ×3 (06:43→22:23)
[2020-01-17] MEDS: Levothyroxine 125 MCG Tab PO SCH (06:43)
[2020-01-17] MEDS: Sodium Chloride 0.9% 10 ML Syringe FLUSH PRN ×3 (06:45→22:18)
[2020-01-17] MEDS: Furosemide 40 MG/4 ML VIAL IVPUSH SCH ×3 (06:45→22:19)
[2020-01-17] MEDS: NOVOLOG SUBCUT SCH ×4 (07:43→22:13)
[2020-01-17] MEDS: Potassium Chloride 10 MEQ Tab.ER PO SCH (08:34)
[2020-01-17] MEDS: Cephalexin 500 MG Cap PO SCH ×3 (08:34→22:14)
[2020-01-17] MEDS: LEVEMIR SUBCUT SCH ×2 (08:35→22:11)
[2020-01-17] MEDS: Aspirin 81 MG Tab.EC PO SCH (08:35)
[2020-01-17] MEDS: buPROPion 150 MG Tab.ER PO SCH (08:36)
[2020-01-17] MEDS: ESCITALOPRAM 20 MG PO SCH (08:37)
--- NOTE | 2020-01-17 10:44 | PCM.PN ---
- General Info Date of Service: 01/17/20 Admission Dx/Problem (Free Text): Admission Diagnosis/Problem Admission Diagnosis/Problem Edema Subjective Update: feeling better urine output is increased still requireing oxygen supplement moderate sob, improved since admission, no associated cp wght is down 10 pounds since yesterday Functional Status: Reports: Tolerating Diet, Ambulating (difficulty getting up from bed) - Review of Systems Pulmonary: Reports: Shortness of Breath (mild) Cardiovascular: Reports: Edema. Denies: Chest Pain Gastrointestinal: Denies: Abdominal Pain Genitourinary: Denies: Dysuria Neurological: Denies: Confusion, Dizziness Psychiatric: Denies: Confusion - Patient Data Vitals - Most Recent: Last Vital Signs Temp 97.8 F 01/17/20 08:00 Pulse 71 01/17/20 08:00 Resp 22 H 01/17/20 08:00 BP 124/59 L 01/17/20 08:00 Pulse Ox 86 L 01/17/20 08:00 Weight - Most Recent: 340 lb 6.4 oz I&O - Last 24 Hours: Intake & Output 01/16/20 01/17/20 01/17/20 22:59 06:59 14:59 Intake Total 400 Output Total 1100 850 600 Balance 289469 -450 -600 Lab Results Last 24 Hours: Laboratory Results - last 24 hr 01/16/20 01/16/20 01/16/20 Range/Units 11:50 16:46 21:31 POC Glucose 151 H 153 H 141 H (70-105) mg/dl 01/17/20 Range/Units 07:19 POC Glucose 134 H (70-105) mg/dl Charli Results Last 24 Hours: Microbiology 01/14/20 17:21 Urine Culture - Final Urine, Clean Catch Escherichia Coli Med Orders - Current: Current Medications Acetaminophen (Tylenol) 650 mg PO Q4H PRN PRN Reason: Pain (Mild 1-3)/fever Aspirin (Halfprin) 81 mg PO DAILY [facility] Last Admin: 01/17/20 08:35 Dose: 81 mg Documented by: Bupropion HCl (Wellbutrin Xl) 150 mg PO DAILY [facility] Last Admin: 01/17/20 08:36 Dose: 150 mg Documented by: Cephalexin (Keflex) 500 mg PO TID [facility] Last Admin: 01/17/20 08:34 Dose: 500 mg Documented by: Dextrose/Water (Dextrose 50% In Water) 25 ml IVPUSH Q1H PRN PRN Reason: blood sugar <70 Furosemide (Lasix) 40 mg IVPUSH Q8HR [facility] Last Admin: 01/17/20 06:45 Dose: 40 mg Documented by: Heparin Sodium (Porcine) (Heparin Sodium) 5,000 units SUBCUT Q8HR [facility] Last Admin: 01/17/20 06:43 Dose: 5,000 units Documented by: Lactulose (Cephulac) 20 gm PO BID PRN PRN Reason: Constipation Last Admin: 01/16/20 18:15 Dose: 20 gm Documented by: Levothyroxine Sodium (Levothyroxine) 125 mcg PO ACBREAKFAST [facility] Last Admin: 01/17/20 06:43 Dose: 125 mcg Documented by: (Aripiprazole [ Abilify] 15 Mg) Own Med* 15 mg PO DAILY [facility] Last Admin: 01/17/20 08:36 Dose: 15 mg Documented by: (Prazosin [Minpress] (1 Mg) Own Med*) 1 mg PO BEDTIME [facility] Last Admin: 01/16/20 21:46 Dose: 1 mg Documented by: Novolog Own Med* 0 each SUBCUT WITHMEALSANDBED [facility]; Protocol Last Admin: 01/17/20 07:43 Dose: Not Given Documented by: Simvastatin 20mg Own (Med*) 0 each PO BEDTIME [facility] Last Admin: 01/16/20 21:44 Dose: 1 each Documented by: Trazodone 100mg Own (Med*) 0 each PO BEDTIME [facility] Last Admin: 01/16/20 21:45 Dose: 1 each Documented by: Levemir Pen Own Med (*) 0 each SUBCUT BID [facility] Last Admin: 01/17/20 08:35 Dose: 1 each Documented by: Escitalopram 20mg (Own Med*) 0 each PO DAILY [facility] Last Admin: 01/17/20 08:37 Dose: 1 each Documented by: Gabapentin 300mg (Own Med*) 0 each PO BEDTIME [facility] Last Admin: 01/16/20 21:53 Dose: 1 each Documented by: Ondansetron HCl (Zofran Odt) 4 mg PO Q4H PRN PRN Reason: nausea, able to take PO Melatonin 10mg Own (Med*) 0 each PO BEDTIME [facility] Last Admin: 01/16/20 21:46 Dose: 1 each Documented by: Potassium Chloride (Klor-Con 10) 40 meq PO WITHBREAKFAST [facility] Last Admin: 01/17/20 08:34 Dose: 40 meq Documented by: Senna/Docusate Sodium (Senna Plus) 1 tab PO BID [facility] Last Admin: 01/17/20 08:34 Dose: 1 tab Documented by: Sodium Chloride (Saline Flush) 10 ml FLUSH ASDIRECTED PRN PRN Reason: Keep Vein Open Last Admin: 01/17/20 06:51 Dose: 10 ml Documented by: Discontinued Medications Aspirin (Halfprin) 81 mg PO DAILY [facility] Bupropion HCl (Wellbutrin Xl) 150 mg PO DAILY [facility] Dextrose/Water (Dextrose 50% In Water) 50 ml IVPUSH ONETIME ONE Stop: 01/14/20 13:38 Last Admin: 01/14/20 13:43 Dose: 50 ml Documented by: Escitalopram Oxalate (Lexapro) 20 mg PO DAILY [facility] Furosemide (Lasix) 20 mg IVPUSH BIDDIURETIC [facility] Last Admin: 01/15/20 08:29 Dose: 20 mg Documented by: Furosemide (Lasix) 40 mg IVPUSH BIDDIURETIC [facility] Last Admin: 01/16/20 08:27 Dose: 40 mg Documented by: Gabapentin (Neurontin) 300 mg PO BEDTIME [facility] Insulin Glargine (Lantus) 30 unit SUBCUT BID [facility] Insulin Glargine (Lantus) 20 unit SUBCUT BID [facility] Insulin Glargine (Lantus) 10 unit SUBCUT BID [facility] Insulin Human Lispro (Humalog) 0 unit SUBCUT WITHMEALSANDBED [facility]; Protocol Last Admin: 01/14/20 18:35 Dose: Not Given Documented by: Iopamidol (Isovue-370 (76%)) 100 ml IVPUSH ONETIME ONE Stop: 01/14/20 13:44 Last Admin: 01/14/20 14:35 Dose: 100 ml Documented by: Melatonin (Melatonin) 10.5 mg PO BEDTIME [facility] Melatonin (Melatonin) 6 mg PO BEDTIME PRN PRN Reason: Sleep Escitalopram 20mg (Own Med) 0 each PO DAILY [facility] Gabapentin 300mg (Own Med*) 0 each PO BEDTIME [facility] Simvastatin (Zocor) 20 mg PO BEDTIME [facility] Trazodone HCl (Trazodone) 100 mg PO BEDTIME [facility] - Exam General: Alert, Oriented Neck: Supple Lungs: Normal Respiratory Effort, Decreased Breath Sounds Cardiovascular: Regular Rate, Regular Rhythm GI/Abdominal Exam: Normal Bowel Sounds, Soft, Non-Tender, Other (morbidly obese) Extremities: Pedal Edema Skin: Warm, Dry Neurological: No New Focal Deficit Psy/Mental Status: Alert, Normal Affect, Normal Mood Sepsis Event Note - Evaluation Sepsis Screening Result: No Definite Risk - Focused Exam Vital Signs: Vital Signs Temp Pulse Resp BP Pulse Ox 01/17/20 08:00 97.8 F 71 22 H 124/59 L 86 L 01/17/20 00:33 98.7 F 75 20 112/53 L 90 L Date Exam was Performed: 01/17/20 Time Exam was Performed: 10:40 - Problem List & Annotations (1) Acute hypercapnic respiratory failure SNOMED Code(s): 050590111 Code(s): J96.02 - ACUTE RESPIRATORY FAILURE WITH HYPERCAPNIA Status: Acute Current Visit: Yes (2) Diabetes SNOMED Code(s): 72438005 Code(s): E11.9 - TYPE 2 DIABETES MELLITUS WITHOUT COMPLICATIONS Status: Acute Current Visit: Yes (3) Hypothyroidism SNOMED Code(s): 86526556 Code(s): E03.9 - HYPOTHYROIDISM, UNSPECIFIED Status: Acute Current Visit: Yes (4) Depression SNOMED Code(s): 77042318 Code(s): F32.9 - MAJOR DEPRESSIVE DISORDER, SINGLE EPISODE, UNSPECIFIED Status: Acute Current Visit: Yes (5) Morbid obesity SNOMED Code(s): 419599153 Code(s): E66.01 - MORBID (SEVERE) OBESITY DUE TO EXCESS CALORIES Status: Acute Current Visit: Yes (6) Edema SNOMED Code(s): 252168443, 851359290 Code(s): R60.9 - EDEMA, UNSPECIFIED Status: Acute Current Visit: No Qualifiers: Edema type: generalized Qualified Code(s): R60.1 - Generalized edema (7) Hypoxia SNOMED Code(s): 316072132 Code(s): R09.02 - HYPOXEMIA Status: Acute Current Visit: No - Problem List Review Problem List Initiated/Reviewed/Updated: Yes - My Orders Last 24 Hours: My Active Orders 01/16/20 09:47 Lactulose [Cephulac] 20 gm PO BID PRN 01/16/20 10:00 Docusate Sodium/Sennosides [Senna Plus] 1 tab PO BID cephALEXin [Keflex] 500 mg PO TID 01/16/20 11:00 Potassium Chloride [Klor-Con 10] 40 meq PO WITHBREAKFAST 01/16/20 14:00 Furosemide [Lasix] 40 mg IVPUSH Q8HR 01/18/20 05:15 BASIC METABOLIC PANEL,BMP [CHEM] AM - Plan Plan:: 50-year-old with a history of hypothyroidism, diabetes, depression. The patient presented to [facility]. She was noted to have about 40 pound weight gain in the past few months. She was noted to have massive edema, shortness of breath with activities. Denies chest pain. She was noted to have hypoglycemia, repeated hypoglycemia treatment was given. The patient was sent to the emergency room Massive edema involving lower extremities, trunk Started Lasix, weight did not change significantly Increased Lasix dose - continue with current Could not obtain echocardiogram due to size On CT the patient was noted to have cardiomegaly This is likely acute on chronic diastolic congestive heart failure Diabetes Hypoglycemia An amp of D50 given in the ER Follow blood sugars Resumed Levemir Hold metformin, pioglitazone Supplemental insulin and hypoglycemia protocol as needed Hypothyroidism Uncontrolled Increase thyroid medication, increase levothyroxine from 100 to 125 g daily Acute hypoxemic, hypercarbic respiratory failure Likely secondary to morbid obesity, fluid overload Supplement oxygen as needed Taper oxygen as possible off BiPAP Consider sleep apnea evaluation as outpatient Depression Continue Abilify, bupropion, escitalopram, trazodone DVT prophylaxis with subcutaneous heparin
[2020-01-17] MEDS: TRAZODONE 100 MG PO SCH (22:07)
[2020-01-17] MEDS: GABAPENTIN 300 MG PO SCH (22:07)
[2020-01-17] MEDS: SIMVASTATIN 20 MG PO SCH (22:09)
[2020-01-17] MEDS: MELATONIN 10 MG PO SCH (22:09)
[2020-01-18] MEDS: Heparin Sodium 5,000 Units/ML Vial SUBCUT SCH ×3 (06:08→22:05)
[2020-01-18] MEDS: Levothyroxine 125 MCG Tab PO SCH (06:09)
[2020-01-18] MEDS: Sodium Chloride 0.9% 10 ML Syringe FLUSH PRN ×2 (06:12→22:01)
[2020-01-18] MEDS: Furosemide 40 MG/4 ML VIAL IVPUSH SCH ×3 (06:13→22:01)
[2020-01-18 06:26] LABS: CHLORIDE,CL 97 mmol/L (98-107); SODIUM,NA 141 mmol/L (136-145)
[2020-01-18 06:41] LABS: ANION GAP 2.79999 mEq/L (7-13)
[2020-01-18] MEDS: Potassium Chloride 10 MEQ Tab.ER PO SCH (08:58)
[2020-01-18] MEDS: Cephalexin 500 MG Cap PO SCH ×3 (08:59→21:59)
[2020-01-18] MEDS: Aspirin 81 MG Tab.EC PO SCH (08:59)
[2020-01-18] MEDS: buPROPion 150 MG Tab.ER PO SCH (09:00)
[2020-01-18] MEDS: ESCITALOPRAM 20 MG PO SCH (09:00)
[2020-01-18] MEDS: NOVOLOG SUBCUT SCH ×4 (09:01→21:54)
[2020-01-18] MEDS: LEVEMIR SUBCUT SCH ×2 (09:08→21:50)
--- NOTE | 2020-01-18 10:45 | PCM.PN ---
- General Info Date of Service: 01/18/20 Admission Dx/Problem (Free Text): Admission Diagnosis/Problem Admission Diagnosis/Problem Edema Subjective Update: feeling well Has had 2 episodes of nosebleed that resolved on its own, still on nasal cannula oxygen at 3 L/m overnight. urine output is increased moderate sob, improved since admission, no associated cp wght is down another 10 pounds since yesterday - Review of Systems General: Denies: Fever, Weakness Pulmonary: Reports: Shortness of Breath Cardiovascular: Reports: Edema. Denies: Chest Pain Gastrointestinal: Denies: Abdominal Pain Genitourinary: Denies: Dysuria - Patient Data Vitals - Most Recent: Last Vital Signs Temp 96.8 F L 01/18/20 08:00 Pulse 66 01/18/20 08:00 Resp 20 01/18/20 08:00 BP 119/49 L 01/18/20 08:00 Pulse Ox 92 L 01/18/20 08:16 Weight - Most Recent: 330 lb 6.4 oz I&O - Last 24 Hours: Intake & Output 01/17/20 01/18/20 01/18/20 22:59 06:59 14:59 Intake Total 150 390 120 Output Total 2500 1800 300 Balance -2350 -1410 -180 Lab Results Last 24 Hours: Laboratory Results - last 24 hr 01/17/20 01/17/20 01/17/20 Range/Units 11:51 16:50 21:28 Sodium (136-145) mmol/L Potassium (3.5-5.1) mmol/L Chloride (98-107) mmol/L Carbon Dioxide (21-32) mmol/L Anion Gap (7-13) mEq/L BUN (7-18) mg/dL Creatinine (0.55-1.02) mg/dL Est Cr Clr Drug Dosing mL/min Estimated GFR (MDRD) Glucose (74-99) mg/dL POC Glucose 127 H 170 H 146 H (70-105) mg/dl Calcium (8.5-10.1) mg/dL 01/18/20 01/18/20 Range/Units 05:30 07:48 Sodium 141 (136-145) mmol/L Potassium 3.8 (3.5-5.1) mmol/L Chloride 97 L (98-107) mmol/L Carbon Dioxide > 45 H* (21-32) mmol/L Anion Gap 2.60685 L (7-13) mEq/L BUN 12 (7-18) mg/dL Creatinine 0.65 (0.55-1.02) mg/dL Est Cr Clr Drug Dosing 81.89 mL/min Estimated GFR (MDRD) > 60 Glucose 129 H (74-99) mg/dL POC Glucose 137 H (70-105) mg/dl Calcium 7.3 L (8.5-10.1) mg/dL Med Orders - Current: Current Medications Acetaminophen (Tylenol) 650 mg PO Q4H PRN PRN Reason: Pain (Mild 1-3)/fever Aspirin (Halfprin) 81 mg PO DAILY [facility] Last Admin: 01/18/20 08:59 Dose: 81 mg Documented by: Bupropion HCl (Wellbutrin Xl) 150 mg PO DAILY [facility] Last Admin: 01/18/20 09:00 Dose: 150 mg Documented by: Cephalexin (Keflex) 500 mg PO TID [facility] Last Admin: 01/18/20 08:59 Dose: 500 mg Documented by: Dextrose/Water (Dextrose 50% In Water) 25 ml IVPUSH Q1H PRN PRN Reason: blood sugar <70 Furosemide (Lasix) 40 mg IVPUSH Q8HR [facility] Last Admin: 01/18/20 06:13 Dose: 40 mg Documented by: Heparin Sodium (Porcine) (Heparin Sodium) 5,000 units SUBCUT Q8HR [facility] Last Admin: 01/18/20 06:08 Dose: Not Given Documented by: Lactulose (Cephulac) 20 gm PO BID PRN PRN Reason: Constipation Last Admin: 01/16/20 18:15 Dose: 20 gm Documented by: Levothyroxine Sodium (Levothyroxine) 125 mcg PO ACBREAKFAST [facility] Last Admin: 01/18/20 06:09 Dose: 125 mcg Documented by: (Aripiprazole [ Abilify] 15 Mg) Own Med* 15 mg PO DAILY [facility] Last Admin: 01/18/20 09:12 Dose: 15 mg Documented by: (Prazosin [Minpress] (1 Mg) Own Med*) 1 mg PO BEDTIME [facility] Last Admin: 01/17/20 22:15 Dose: 1 mg Documented by: Novolog Own Med* 0 each SUBCUT WITHMEALSANDBED [facility]; Protocol Last Admin: 01/18/20 09:01 Dose: Not Given Documented by: Simvastatin 20mg Own (Med*) 0 each PO BEDTIME [facility] Last Admin: 01/17/20 22:09 Dose: 1 each Documented by: Trazodone 100mg Own (Med*) 0 each PO BEDTIME [facility] Last Admin: 01/17/20 22:07 Dose: 1 each Documented by: Levemir Pen Own Med (*) 0 each SUBCUT BID [facility] Last Admin: 01/18/20 09:08 Dose: 1 each Documented by: Escitalopram 20mg (Own Med*) 0 each PO DAILY [facility] Last Admin: 01/18/20 09:00 Dose: 1 each Documented by: Gabapentin 300mg (Own Med*) 0 each PO BEDTIME [facility] Last Admin: 01/17/20 22:07 Dose: 1 each Documented by: Ondansetron HCl (Zofran Odt) 4 mg PO Q4H PRN PRN Reason: nausea, able to take PO Melatonin 10mg Own (Med*) 0 each PO BEDTIME [facility] Last Admin: 01/17/20 22:09 Dose: 1 each Documented by: Potassium Chloride (Klor-Con 10) 40 meq PO WITHBREAKFAST [facility] Last Admin: 01/18/20 08:58 Dose: 40 meq Documented by: Senna/Docusate Sodium (Senna Plus) 1 tab PO BID [facility] Last Admin: 01/18/20 08:58 Dose: 1 tab Documented by: Sodium Chloride (Saline Flush) 10 ml FLUSH ASDIRECTED PRN PRN Reason: Keep Vein Open Last Admin: 01/18/20 06:12 Dose: 10 ml Documented by: Discontinued Medications Aspirin (Halfprin) 81 mg PO DAILY [facility] Bupropion HCl (Wellbutrin Xl) 150 mg PO DAILY [facility] Dextrose/Water (Dextrose 50% In Water) 50 ml IVPUSH ONETIME ONE Stop: 01/14/20 13:38 Last Admin: 01/14/20 13:43 Dose: 50 ml Documented by: Escitalopram Oxalate (Lexapro) 20 mg PO DAILY [facility] Furosemide (Lasix) 20 mg IVPUSH BIDDIURETIC [facility] Last Admin: 01/15/20 08:29 Dose: 20 mg Documented by: Furosemide (Lasix) 40 mg IVPUSH BIDDIURETIC [facility] Last Admin: 01/16/20 08:27 Dose: 40 mg Documented by: Gabapentin (Neurontin) 300 mg PO BEDTIME [facility] Insulin Glargine (Lantus) 30 unit SUBCUT BID [facility] Insulin Glargine (Lantus) 20 unit SUBCUT BID [facility] Insulin Glargine (Lantus) 10 unit SUBCUT BID [facility] Insulin Human Lispro (Humalog) 0 unit SUBCUT WITHMEALSANDBED [facility]; Protocol Last Admin: 01/14/20 18:35 Dose: Not Given Documented by: Iopamidol (Isovue-370 (76%)) 100 ml IVPUSH ONETIME ONE Stop: 01/14/20 13:44 Last Admin: 01/14/20 14:35 Dose: 100 ml Documented by: Melatonin (Melatonin) 10.5 mg PO BEDTIME [facility] Melatonin (Melatonin) 6 mg PO BEDTIME PRN PRN Reason: Sleep Escitalopram 20mg (Own Med) 0 each PO DAILY [facility] Gabapentin 300mg (Own Med*) 0 each PO BEDTIME [facility] Simvastatin (Zocor) 20 mg PO BEDTIME [facility] Trazodone HCl (Trazodone) 100 mg PO BEDTIME [facility] - Exam Quality Assessment: Supplemental Oxygen General: Alert, Oriented Neck: Supple Lungs: Clear to Auscultation, Normal Respiratory Effort Cardiovascular: Regular Rate, Regular Rhythm GI/Abdominal Exam: Normal Bowel Sounds, Soft, Non-Tender Extremities: Pedal Edema Sepsis Event Note - Evaluation Sepsis Screening Result: No Definite Risk - Focused Exam Vital Signs: Vital Signs Temp Pulse Resp BP Pulse Ox 01/18/20 08:16 92 L 01/18/20 08:00 96.8 F L 66 20 119/49 L 98 01/18/20 04:00 97.6 F 70 20 132/59 L 95 01/17/20 23:15 98.2 F 70 20 141/69 H 95 Date Exam was Performed: 01/18/20 Time Exam was Performed: 10:42 - Problem List & Annotations (1) Acute hypercapnic respiratory failure SNOMED Code(s): 544178303 Code(s): J96.02 - ACUTE RESPIRATORY FAILURE WITH HYPERCAPNIA Status: Acute Current Visit: Yes (2) Diabetes SNOMED Code(s): 97963194 Code(s): E11.9 - TYPE 2 DIABETES MELLITUS WITHOUT COMPLICATIONS Status: Acute Current Visit: Yes (3) Hypothyroidism SNOMED Code(s): 35579735 Code(s): E03.9 - HYPOTHYROIDISM, UNSPECIFIED Status: Acute Current Visit: Yes (4) Depression SNOMED Code(s): 32203489 Code(s): F32.9 - MAJOR DEPRESSIVE DISORDER, SINGLE EPISODE, UNSPECIFIED Status: Acute Current Visit: Yes (5) Morbid obesity SNOMED Code(s): 176912907 Code(s): E66.01 - MORBID (SEVERE) OBESITY DUE TO EXCESS CALORIES Status: Acute Current Visit: Yes (6) Edema SNOMED Code(s): 567822640, 415816639 Code(s): R60.9 - EDEMA, UNSPECIFIED Status: Acute Current Visit: No Qualifiers: Edema type: generalized Qualified Code(s): R60.1 - Generalized edema (7) Hypoxia SNOMED Code(s): 661756037 Code(s): R09.02 - HYPOXEMIA Status: Acute Current Visit: No - Problem List Review Problem List Initiated/Reviewed/Updated: Yes - My Orders Last 24 Hours: My Active Orders 01/19/20 05:15 BASIC METABOLIC PANEL,BMP [CHEM] AM - Plan Plan:: 50-year-old with a history of hypothyroidism, diabetes, depression. The patient presented to [facility]. She was noted to have about 40 pound weight gain in the past few months. She was noted to have massive edema, shortness of breath with activities. Denies chest pain. She was noted to have hypoglycemia, repeated hypoglycemia treatment was given. The patient was sent to the emergency room Continue Massive edema involving lower extremities, trunk Started Lasix, weight did not change significantly Increased Lasix dose - urine output is better- continue with current Could not obtain echocardiogram due to size On CT the patient was noted to have cardiomegaly This is likely acute on chronic diastolic congestive heart failure Diabetes Hypoglycemia An amp of D50 given in the ER Follow blood sugars Resumed Levemir Hold metformin, pioglitazone Supplemental insulin and hypoglycemia protocol as needed Hypothyroidism Uncontrolled Increase thyroid medication, increase levothyroxine from 100 to 125 g daily Acute hypoxemic, hypercarbic respiratory failure Likely secondary to morbid obesity, fluid overload Supplement oxygen as needed Taper oxygen as possible - might need to go home with home oxygen off BiPAP Consider sleep apnea evaluation as outpatient Depression Continue Abilify, bupropion, escitalopram, trazodone DVT prophylaxis with subcutaneous heparin
[2020-01-18] MEDS: SIMVASTATIN 20 MG PO SCH (21:57)
[2020-01-18] MEDS: MELATONIN 10 MG PO SCH (21:57)
[2020-01-18] MEDS: GABAPENTIN 300 MG PO SCH (21:58)
[2020-01-18] MEDS: TRAZODONE 100 MG PO SCH (21:58)
[2020-01-19] MEDS: Levothyroxine 125 MCG Tab PO SCH (05:48)
[2020-01-19] MEDS: Sodium Chloride 0.9% 10 ML Syringe FLUSH PRN ×2 (05:48→13:16)
[2020-01-19] MEDS: Furosemide 40 MG/4 ML VIAL IVPUSH SCH ×3 (05:49→22:05)
[2020-01-19] MEDS: Heparin Sodium 5,000 Units/ML Vial SUBCUT SCH ×3 (05:55→22:04)
[2020-01-19 06:02] LABS: CHLORIDE,CL 94 mmol/L (98-107); SODIUM,NA 141 mmol/L (136-145)
[2020-01-19 06:09] LABS: ANION GAP 5.89999 mEq/L (7-13)
[2020-01-19] MEDS: Potassium Chloride 10 MEQ Tab.ER PO SCH (08:46)
[2020-01-19] MEDS: Cephalexin 500 MG Cap PO SCH ×3 (08:47→22:02)
[2020-01-19] MEDS: buPROPion 150 MG Tab.ER PO SCH (08:48)
[2020-01-19] MEDS: ESCITALOPRAM 20 MG PO SCH (08:49)
[2020-01-19] MEDS: Aspirin 81 MG Tab.EC PO SCH (08:49)
[2020-01-19] MEDS: NOVOLOG SUBCUT SCH ×4 (08:50→23:02)
[2020-01-19] MEDS: LEVEMIR SUBCUT SCH ×2 (08:51→23:01)
--- NOTE | 2020-01-19 10:40 | PCM.PN ---
- General Info Date of Service: 01/19/20 Subjective Update: feeling well urine output is still good moderate sob, improved since admission, no associated cp wght is down another 3 pounds since yesterday on 1-1.5 nc oxygen - Review of Systems General: Denies: Fever, Weakness Pulmonary: Reports: Shortness of Breath Cardiovascular: Reports: Edema. Denies: Chest Pain Gastrointestinal: Denies: Abdominal Pain Genitourinary: Denies: Dysuria - Patient Data Vitals - Most Recent: Last Vital Signs Temp 98.1 F 01/19/20 07:40 Pulse 69 01/19/20 07:40 Resp 18 01/19/20 07:40 BP 112/60 01/19/20 07:40 Pulse Ox 97 01/19/20 07:40 Weight - Most Recent: 327 lb 3.2 oz I&O - Last 24 Hours: Intake & Output 01/18/20 01/19/20 01/19/20 22:59 06:59 14:59 Intake Total 680 350 300 Output Total 300 1550 Balance 380 -1200 300 Lab Results Last 24 Hours: Laboratory Results - last 24 hr 01/18/20 01/18/20 01/18/20 Range/Units 11:29 16:38 20:57 Sodium (136-145) mmol/L Potassium (3.5-5.1) mmol/L Chloride (98-107) mmol/L Carbon Dioxide (21-32) mmol/L Anion Gap (7-13) mEq/L BUN (7-18) mg/dL Creatinine (0.55-1.02) mg/dL Est Cr Clr Drug Dosing mL/min Estimated GFR (MDRD) Glucose (74-99) mg/dL POC Glucose 185 H 164 H 183 H (70-105) mg/dl Calcium (8.5-10.1) mg/dL 01/19/20 01/19/20 Range/Units 05:15 07:46 Sodium 141 (136-145) mmol/L Potassium 3.9 (3.5-5.1) mmol/L Chloride 94 L (98-107) mmol/L Carbon Dioxide > 45 H* (21-32) mmol/L Anion Gap 5.60790 L (7-13) mEq/L BUN 14 (7-18) mg/dL Creatinine 0.79 (0.55-1.02) mg/dL Est Cr Clr Drug Dosing 67.38 mL/min Estimated GFR (MDRD) > 60 Glucose 188 H (74-99) mg/dL POC Glucose 146 H (70-105) mg/dl Calcium 7.3 L (8.5-10.1) mg/dL Med Orders - Current: Current Medications Acetaminophen (Tylenol) 650 mg PO Q4H PRN PRN Reason: Pain (Mild 1-3)/fever Aspirin (Halfprin) 81 mg PO DAILY [facility] Last Admin: 01/19/20 08:49 Dose: 81 mg Documented by: Bupropion HCl (Wellbutrin Xl) 150 mg PO DAILY [facility] Last Admin: 01/19/20 08:48 Dose: 150 mg Documented by: Cephalexin (Keflex) 500 mg PO TID [facility] Last Admin: 01/19/20 08:47 Dose: 500 mg Documented by: Dextrose/Water (Dextrose 50% In Water) 25 ml IVPUSH Q1H PRN PRN Reason: blood sugar <70 Furosemide (Lasix) 40 mg IVPUSH Q8HR [facility] Last Admin: 01/19/20 05:49 Dose: 40 mg Documented by: Heparin Sodium (Porcine) (Heparin Sodium) 5,000 units SUBCUT Q8HR [facility] Last Admin: 01/19/20 05:55 Dose: Not Given Documented by: Lactulose (Cephulac) 20 gm PO BID PRN PRN Reason: Constipation Last Admin: 01/16/20 18:15 Dose: 20 gm Documented by: Levothyroxine Sodium (Levothyroxine) 125 mcg PO ACBREAKFAST [facility] Last Admin: 01/19/20 05:48 Dose: 125 mcg Documented by: (Aripiprazole [ Abilify] 15 Mg) Own Med* 15 mg PO DAILY [facility] Last Admin: 01/19/20 08:47 Dose: 15 mg Documented by: (Prazosin [Minpress] (1 Mg) Own Med*) 1 mg PO BEDTIME [facility] Last Admin: 01/18/20 21:56 Dose: 1 mg Documented by: Novolog Own Med* 0 each SUBCUT WITHMEALSANDBED [facility]; Protocol Last Admin: 01/19/20 08:50 Dose: Not Given Documented by: Simvastatin 20mg Own (Med*) 0 each PO BEDTIME [facility] Last Admin: 01/18/20 21:57 Dose: 1 each Documented by: Trazodone 100mg Own (Med*) 0 each PO BEDTIME [facility] Last Admin: 01/18/20 21:58 Dose: 1 each Documented by: Levemir Pen Own Med (*) 0 each SUBCUT BID [facility] Last Admin: 01/19/20 08:51 Dose: 1 each Documented by: Escitalopram 20mg (Own Med*) 0 each PO DAILY [facility] Last Admin: 01/19/20 08:49 Dose: 1 each Documented by: Gabapentin 300mg (Own Med*) 0 each PO BEDTIME [facility] Last Admin: 01/18/20 21:58 Dose: 1 each Documented by: Ondansetron HCl (Zofran Odt) 4 mg PO Q4H PRN PRN Reason: nausea, able to take PO Melatonin 10mg Own (Med*) 0 each PO BEDTIME [facility] Last Admin: 01/18/20 21:57 Dose: 1 each Documented by: Potassium Chloride (Klor-Con 10) 40 meq PO WITHBREAKFAST [facility] Last Admin: 01/19/20 08:46 Dose: 40 meq Documented by: Senna/Docusate Sodium (Senna Plus) 1 tab PO BID [facility] Last Admin: 01/19/20 08:47 Dose: 1 tab Documented by: Sodium Chloride (Saline Flush) 10 ml FLUSH ASDIRECTED PRN PRN Reason: Keep Vein Open Last Admin: 01/19/20 05:48 Dose: 10 ml Documented by: Discontinued Medications Aspirin (Halfprin) 81 mg PO DAILY [facility] Bupropion HCl (Wellbutrin Xl) 150 mg PO DAILY [facility] Dextrose/Water (Dextrose 50% In Water) 50 ml IVPUSH ONETIME ONE Stop: 01/14/20 13:38 Last Admin: 01/14/20 13:43 Dose: 50 ml Documented by: Escitalopram Oxalate (Lexapro) 20 mg PO DAILY [facility] Furosemide (Lasix) 20 mg IVPUSH BIDDIURETIC [facility] Last Admin: 01/15/20 08:29 Dose: 20 mg Documented by: Furosemide (Lasix) 40 mg IVPUSH BIDDIURETIC [facility] Last Admin: 01/16/20 08:27 Dose: 40 mg Documented by: Gabapentin (Neurontin) 300 mg PO BEDTIME [facility] Insulin Glargine (Lantus) 30 unit SUBCUT BID [facility] Insulin Glargine (Lantus) 20 unit SUBCUT BID [facility] Insulin Glargine (Lantus) 10 unit SUBCUT BID [facility] Insulin Human Lispro (Humalog) 0 unit SUBCUT [facility]MEALSANDBED [facility]; Protocol Last Admin: 01/14/20 18:35 Dose: Not Given Documented by: Iopamidol (Isovue-370 (76%)) 100 ml IVPUSH ONETIME ONE Stop: 01/14/20 13:44 Last Admin: 01/14/20 14:35 Dose: 100 ml Documented by: Melatonin (Melatonin) 10.5 mg PO BEDTIME [facility] Melatonin (Melatonin) 6 mg PO BEDTIME PRN PRN Reason: Sleep Escitalopram 20mg (Own Med) 0 each PO DAILY [facility] Gabapentin 300mg (Own Med*) 0 each PO BEDTIME [facility] Simvastatin (Zocor) 20 mg PO BEDTIME [facility] Trazodone HCl (Trazodone) 100 mg PO BEDTIME [facility] - Exam Quality Assessment: Supplemental Oxygen General: Alert, Oriented Neck: Supple Lungs: Clear to Auscultation, Normal Respiratory Effort Cardiovascular: Regular Rate, Regular Rhythm GI/Abdominal Exam: Normal Bowel Sounds, Soft, Non-Tender, Other (Morbidly obese) Extremities: Pedal Edema, Other (Edema up to trunk) Skin: Warm, Dry Neurological: No New Focal Deficit Psy/Mental Status: Alert, Normal Affect, Normal Mood Sepsis Event Note - Evaluation Sepsis Screening Result: No Definite Risk - Focused Exam Vital Signs: Vital Signs Temp Pulse Resp BP Pulse Ox 01/19/20 07:40 98.1 F 69 18 112/60 97 01/19/20 05:00 98 F 72 20 116/57 L 92 L 01/18/20 23:00 97.6 F 70 20 112/49 L 92 L Date Exam was Performed: 01/19/20 Time Exam was Performed: 10:38 - Problem List & Annotations (1) Acute hypercapnic respiratory failure SNOMED Code(s): 038818486 Code(s): J96.02 - ACUTE RESPIRATORY FAILURE WITH HYPERCAPNIA Status: Acute Current Visit: Yes (2) Diabetes SNOMED Code(s): 45204926 Code(s): E11.9 - TYPE 2 DIABETES MELLITUS WITHOUT COMPLICATIONS Status: Acute Current Visit: Yes (3) Hypothyroidism SNOMED Code(s): 31261571 Code(s): E03.9 - HYPOTHYROIDISM, UNSPECIFIED Status: Acute Current Visit: Yes (4) Depression SNOMED Code(s): 48144031 Code(s): F32.9 - MAJOR DEPRESSIVE DISORDER, SINGLE EPISODE, UNSPECIFIED Status: Acute Current Visit: Yes (5) Morbid obesity SNOMED Code(s): 767048506 Code(s): E66.01 - MORBID (SEVERE) OBESITY DUE TO EXCESS CALORIES Status: Acute Current Visit: Yes (6) Edema SNOMED Code(s): 579343947, 123331173 Code(s): R60.9 - EDEMA, UNSPECIFIED Status: Acute Current Visit: No Qualifiers: Edema type: generalized Qualified Code(s): R60.1 - Generalized edema (7) Hypoxia SNOMED Code(s): 969657221 Code(s): R09.02 - HYPOXEMIA Status: Acute Current Visit: No - Problem List Review Problem List Initiated/Reviewed/Updated: Yes - Plan Plan:: 50-year-old with a history of hypothyroidism, diabetes, depression. The patient presented to [facility]. She was noted to have about 40 pound weight gain in the past few months. She was noted to have massive edema, shortness of breath with activities. Denies chest pain. She was noted to have hypoglycemia, repeated hypoglycemia treatment was given. The patient was sent to the emergency room acute on chronic diastolic congestive heart failure Continue Massive edema involving lower extremities, trunk Started Lasix, weight did not change significantly Increased Lasix dose - urine output is better- continue with current dose Could not obtain echocardiogram due to size On CT the patient was noted to have cardiomegaly Diabetes Hypoglycemia on admission An amp of D50 given in the ER Follow blood sugars Resumed Levemir Hold metformin, pioglitazone Supplemental insulin and hypoglycemia protocol as needed Hypothyroidism Uncontrolled on admission Increase thyroid medication, increase levothyroxine from 100 to 125 g daily Acute hypoxemic, hypercarbic respiratory failure Likely secondary to morbid obesity, fluid overload Supplement oxygen as needed Taper oxygen as possible - might need to go home with home oxygen off BiPAP Consider sleep apnea evaluation as outpatient Depression Continue Abilify, bupropion, escitalopram, trazodone DVT prophylaxis with subcutaneous heparin
[2020-01-19] MEDS: TRAZODONE 100 MG PO SCH (22:04)
[2020-01-19] MEDS: SIMVASTATIN 20 MG PO SCH (22:06)
[2020-01-19] MEDS: MELATONIN 10 MG PO SCH (22:08)
[2020-01-19] MEDS: GABAPENTIN 300 MG PO SCH (23:00)
[2020-01-20] MEDS: Levothyroxine 125 MCG Tab PO SCH (05:49)
[2020-01-20] MEDS: Heparin Sodium 5,000 Units/ML Vial SUBCUT SCH ×2 (05:49→20:26)
[2020-01-20] MEDS: Furosemide 40 MG/4 ML VIAL IVPUSH SCH ×3 (05:49→22:15)
[2020-01-20 06:33] LABS: CHLORIDE,CL 96 mmol/L (98-107); SODIUM,NA 141 mmol/L (136-145)
[2020-01-20 06:38] LABS: ANION GAP 3.79999 mEq/L (7-13)
[2020-01-20] MEDS: Cephalexin 500 MG Cap PO SCH ×3 (08:48→20:26)
[2020-01-20] MEDS: Potassium Chloride 10 MEQ Tab.ER PO SCH (08:48)
[2020-01-20] MEDS: buPROPion 150 MG Tab.ER PO SCH (08:50)
[2020-01-20] MEDS: Aspirin 81 MG Tab.EC PO SCH (08:50)
[2020-01-20] MEDS: ESCITALOPRAM 20 MG PO SCH (08:50)
[2020-01-20] MEDS: NOVOLOG SUBCUT SCH ×4 (08:51→20:31)
[2020-01-20] MEDS: LEVEMIR SUBCUT SCH ×2 (08:52→20:30)
--- NOTE | 2020-01-20 09:44 | PCM.PN ---
- General Info Date of Service: 01/20/20 Admission Dx/Problem (Free Text): Admission Diagnosis/Problem Admission Diagnosis/Problem Edema Subjective Update: feeling well urine output is still good, loosing weight moderate sob, improved since admission, no associated cp has been on 1 lpm nc oxygen overnight - Review of Systems General: Reports: Weakness. Denies: Fever Pulmonary: Reports: Shortness of Breath Cardiovascular: Reports: Edema. Denies: Chest Pain Gastrointestinal: Denies: Abdominal Pain Genitourinary: Denies: Dysuria - Patient Data Vitals - Most Recent: Last Vital Signs Temp 97.2 F 01/20/20 07:53 Pulse 72 01/20/20 07:53 Resp 20 01/20/20 07:53 BP 127/57 L 01/20/20 07:53 Pulse Ox 90 L 01/20/20 07:53 Weight - Most Recent: 320 lb 8 oz I&O - Last 24 Hours: Intake & Output 01/19/20 01/20/20 01/20/20 22:59 06:59 14:59 Intake Total 1465 Output Total 600 300 Balance 865 -300 Lab Results Last 24 Hours: Laboratory Results - last 24 hr 01/19/20 01/19/20 01/19/20 Range/Units 11:57 16:48 20:59 WBC (5.0-10.0) 10^3/uL RBC (4.2-5.4) 10^6/uL Hgb (12.0-16.0) g/dL Hct (37.0-47.0) % MCV (80-100) fL MCH (27.0-34.0) pg MCHC (33.0-35.0) g/dL Plt Count (150-450) 10^3/uL Neut % (Auto) (42.2-75.2) % Lymph % (Auto) (20.5-50.1) % [place] % (Auto) (2-8) % Eos % (Auto) (1.0-3.0) % Baso % (Auto) (0.0-1.0) % Sodium (136-145) mmol/L Potassium (3.5-5.1) mmol/L Chloride (98-107) mmol/L Carbon Dioxide (21-32) mmol/L Anion Gap (7-13) mEq/L BUN (7-18) mg/dL Creatinine (0.55-1.02) mg/dL Est Cr Clr Drug Dosing mL/min Estimated GFR (MDRD) Glucose (74-99) mg/dL POC Glucose 208 H 172 H 211 H (70-105) mg/dl Calcium (8.5-10.1) mg/dL 01/20/20 01/20/20 01/20/20 Range/Units 05:25 05:25 07:49 WBC 5.3 (5.0-10.0) 10^3/uL RBC 4.82 (4.2-5.4) 10^6/uL Hgb 12.7 (12.0-16.0) g/dL Hct 43.1 (37.0-47.0) % MCV 89.4 (80-100) fL MCH 26.3 L (27.0-34.0) pg MCHC 29.5 L (33.0-35.0) g/dL Plt Count 142 L (150-450) 10^3/uL Neut % (Auto) 72.1 (42.2-75.2) % Lymph % (Auto) 11.6 L (20.5-50.1) % [place] % (Auto) 8.8 H (2-8) % Eos % (Auto) 6.9 H (1.0-3.0) % Baso % (Auto) 0.6 (0.0-1.0) % Sodium 141 (136-145) mmol/L Potassium 3.8 (3.5-5.1) mmol/L Chloride 96 L (98-107) mmol/L Carbon Dioxide > 45 H* (21-32) mmol/L Anion Gap 3.65812 L (7-13) mEq/L BUN 13 (7-18) mg/dL Creatinine 0.64 (0.55-1.02) mg/dL Est Cr Clr Drug Dosing 83.17 mL/min Estimated GFR (MDRD) > 60 Glucose 168 H (74-99) mg/dL POC Glucose 158 H (70-105) mg/dl Calcium 7.5 L (8.5-10.1) mg/dL Med Orders - Current: Current Medications Acetaminophen (Tylenol) 650 mg PO Q4H PRN PRN Reason: Pain (Mild 1-3)/fever Aspirin (Halfprin) 81 mg PO DAILY [facility] Last Admin: 01/20/20 08:50 Dose: 81 mg Documented by: Bupropion HCl (Wellbutrin Xl) 150 mg PO DAILY [facility] Last Admin: 01/20/20 08:50 Dose: 150 mg Documented by: Cephalexin (Keflex) 500 mg PO TID [facility] Last Admin: 01/20/20 08:48 Dose: 500 mg Documented by: Dextrose/Water (Dextrose 50% In Water) 25 ml IVPUSH Q1H PRN PRN Reason: blood sugar <70 Furosemide (Lasix) 40 mg IVPUSH Q8HR [facility] Last Admin: 01/20/20 05:49 Dose: 40 mg Documented by: Heparin Sodium (Porcine) (Heparin Sodium) 5,000 units SUBCUT Q8HR [facility] Last Admin: 01/20/20 05:49 Dose: Not Given Documented by: Lactulose (Cephulac) 20 gm PO BID PRN PRN Reason: Constipation Last Admin: 01/16/20 18:15 Dose: 20 gm Documented by: Levothyroxine Sodium (Levothyroxine) 125 mcg PO ACBREAKFAST [facility] Last Admin: 01/20/20 05:49 Dose: 125 mcg Documented by: (Aripiprazole [ Abilify] 15 Mg) Own Med* 15 mg PO DAILY [facility] Last Admin: 01/20/20 08:48 Dose: 15 mg Documented by: (Prazosin [Minpress] (1 Mg) Own Med*) 1 mg PO BEDTIME [facility] Last Admin: 01/19/20 22:07 Dose: 1 mg Documented by: Novolog Own Med* 0 each SUBCUT WITHMEALSANDBED [facility]; Protocol Last Admin: 01/20/20 08:51 Dose: 1 each Documented by: Simvastatin 20mg Own (Med*) 0 each PO BEDTIME [facility] Last Admin: 01/19/20 22:06 Dose: 1 each Documented by: Trazodone 100mg Own (Med*) 0 each PO BEDTIME [facility] Last Admin: 01/19/20 22:04 Dose: 1 each Documented by: Levemir Pen Own Med (*) 0 each SUBCUT BID [facility] Last Admin: 01/20/20 08:52 Dose: 10 each Documented by: Escitalopram 20mg (Own Med*) 0 each PO DAILY [facility] Last Admin: 01/20/20 08:50 Dose: 1 each Documented by: Gabapentin 300mg (Own Med*) 0 each PO BEDTIME [facility] Last Admin: 01/19/20 23:00 Dose: 1 each Documented by: Ondansetron HCl (Zofran Odt) 4 mg PO Q4H PRN PRN Reason: nausea, able to take PO Melatonin 10mg Own (Med*) 0 each PO BEDTIME [facility] Last Admin: 01/19/20 22:08 Dose: 2 each Documented by: Potassium Chloride (Klor-Con 10) 40 meq PO WITHBREAKFAST [facility] Last Admin: 01/20/20 08:48 Dose: 40 meq Documented by: Senna/Docusate Sodium (Senna Plus) 1 tab PO BID [facility] Last Admin: 01/20/20 08:47 Dose: 1 tab Documented by: Sodium Chloride (Saline Flush) 10 ml FLUSH ASDIRECTED PRN PRN Reason: Keep Vein Open Last Admin: 01/19/20 13:16 Dose: 10 ml Documented by: Discontinued Medications Aspirin (Halfprin) 81 mg PO DAILY [facility] Bupropion HCl (Wellbutrin Xl) 150 mg PO DAILY [facility] Dextrose/Water (Dextrose 50% In Water) 50 ml IVPUSH ONETIME ONE Stop: 01/14/20 13:38 Last Admin: 01/14/20 13:43 Dose: 50 ml Documented by: Escitalopram Oxalate (Lexapro) 20 mg PO DAILY [facility] Furosemide (Lasix) 20 mg IVPUSH BIDDIURETIC [facility] Last Admin: 01/15/20 08:29 Dose: 20 mg Documented by: Furosemide (Lasix) 40 mg IVPUSH BIDDIURETIC [facility] Last Admin: 01/16/20 08:27 Dose: 40 mg Documented by: Gabapentin (Neurontin) 300 mg PO BEDTIME [facility] Insulin Glargine (Lantus) 30 unit SUBCUT BID [facility] Insulin Glargine (Lantus) 20 unit SUBCUT BID [facility] Insulin Glargine (Lantus) 10 unit SUBCUT BID [facility] Insulin Human Lispro (Humalog) 0 unit SUBCUT WITHMEALSANDBED [facility]; Protocol Last Admin: 01/14/20 18:35 Dose: Not Given Documented by: Iopamidol (Isovue-370 (76%)) 100 ml IVPUSH ONETIME ONE Stop: 01/14/20 13:44 Last Admin: 01/14/20 14:35 Dose: 100 ml Documented by: Melatonin (Melatonin) 10.5 mg PO BEDTIME [facility] Melatonin (Melatonin) 6 mg PO BEDTIME PRN PRN Reason: Sleep Escitalopram 20mg (Own Med) 0 each PO DAILY [facility] Gabapentin 300mg (Own Med*) 0 each PO BEDTIME [facility] Simvastatin (Zocor) 20 mg PO BEDTIME [facility] Trazodone HCl (Trazodone) 100 mg PO BEDTIME [facility] - Exam Quality Assessment: Supplemental Oxygen General: Alert, Oriented Neck: Supple Lungs: Normal Respiratory Effort, Decreased Breath Sounds Cardiovascular: Regular Rate, Regular Rhythm GI/Abdominal Exam: Normal Bowel Sounds, Soft, Non-Tender Extremities: Pedal Edema (up to trunk) Sepsis Event Note - Evaluation Sepsis Screening Result: No Definite Risk - Focused Exam Vital Signs: Vital Signs Temp Pulse Resp BP Pulse Ox 01/20/20 07:53 97.2 F 72 20 127/57 L 90 L 01/20/20 00:00 97.8 F 76 20 123/51 L 94 L Date Exam was Performed: 01/20/20 Time Exam was Performed: 09:41 - Problem List & Annotations (1) Acute hypercapnic respiratory failure SNOMED Code(s): 408167048 Code(s): J96.02 - ACUTE RESPIRATORY FAILURE WITH HYPERCAPNIA Status: Acute Current Visit: Yes (2) Diabetes SNOMED Code(s): 59482953 Code(s): E11.9 - TYPE 2 DIABETES MELLITUS WITHOUT COMPLICATIONS Status: Acute Current Visit: Yes (3) Hypothyroidism SNOMED Code(s): 97082074 Code(s): E03.9 - HYPOTHYROIDISM, UNSPECIFIED Status: Acute Current Visit: Yes (4) Depression SNOMED Code(s): 39767465 Code(s): F32.9 - MAJOR DEPRESSIVE DISORDER, SINGLE EPISODE, UNSPECIFIED Status: Acute Current Visit: Yes (5) Morbid obesity SNOMED Code(s): 357744211 Code(s): E66.01 - MORBID (SEVERE) OBESITY DUE TO EXCESS CALORIES Status: Acute Current Visit: Yes (6) Edema SNOMED Code(s): 602724176, 233611147 Code(s): R60.9 - EDEMA, UNSPECIFIED Status: Acute Current Visit: No Qualifiers: Edema type: generalized Qualified Code(s): R60.1 - Generalized edema (7) Hypoxia SNOMED Code(s): 658403280 Code(s): R09.02 - HYPOXEMIA Status: Acute Current Visit: No - Problem List Review Problem List Initiated/Reviewed/Updated: Yes - My Orders Last 24 Hours: My Active Orders 01/20/20 09:40 OT Evaluation and Treatment [CONS] Routine PT Evaluation and Treatment [CONS] Routine 01/21/20 05:15 BASIC METABOLIC PANEL,BMP [CHEM] AM - Plan Plan:: 50-year-old with a history of hypothyroidism, diabetes, depression. The patient presented to [facility]. She was noted to have about 40 pound weight gain in the past few months. She was noted to have massive edema, shortness of breath with activities. Denies chest pain. She was noted to have hypoglycemia, repeated hypoglycemia treatment was given. The patient was sent to the emergency room acute on chronic diastolic congestive heart failure Continue Massive edema involving lower extremities, trunk Started Lasix, weight did not change significantly Increased Lasix dose - urine output is good - continue with current dose Could not obtain echocardiogram due to size On CT the patient was noted to have cardiomegaly weakness will have pt/ot eval and treatment Diabetes Hypoglycemia on admission An amp of D50 given in the ER Follow blood sugars Resumed Levemir Hold metformin, pioglitazone Supplemental insulin and hypoglycemia protocol as needed Hypothyroidism Uncontrolled on admission Increase thyroid medication, increase levothyroxine from 100 to 125 g daily Acute hypoxemic, hypercarbic respiratory failure Likely secondary to morbid obesity, fluid overload Supplement oxygen as needed Taper oxygen as possible - might need to go home with home oxygen off BiPAP Consider sleep apnea evaluation as outpatient Depression Continue Abilify, bupropion, escitalopram, trazodone DVT prophylaxis with subcutaneous heparin due to nose bleed decrease to BID will ask swing bed eval, pt/ot
[2020-01-20] MEDS: TRAZODONE 100 MG PO SCH (20:28)
[2020-01-20] MEDS: SIMVASTATIN 20 MG PO SCH (20:28)
[2020-01-20] MEDS: MELATONIN 10 MG PO SCH (20:29)
[2020-01-20] MEDS: GABAPENTIN 300 MG PO SCH (20:31)
[2020-01-20] MEDS: Sodium Chloride 0.9% 10 ML Syringe FLUSH PRN (22:15)
[2020-01-21] MEDS: Levothyroxine 125 MCG Tab PO SCH (05:59)
[2020-01-21] MEDS: Furosemide 40 MG/4 ML VIAL IVPUSH SCH (06:03)
[2020-01-21 07:05] LABS: CHLORIDE,CL 98 mmol/L (98-107); SODIUM,NA 143 mmol/L (136-145)
[2020-01-21 07:09] LABS: ANION GAP 2.7 mEq/L (7-13)
[2020-01-21] MEDS: Potassium Chloride 10 MEQ Tab.ER PO SCH (08:31)
[2020-01-21] MEDS: Cephalexin 500 MG Cap PO SCH (08:32)
[2020-01-21] MEDS: buPROPion 150 MG Tab.ER PO SCH (08:33)
[2020-01-21] MEDS: Aspirin 81 MG Tab.EC PO SCH (08:34)
[2020-01-21] MEDS: NOVOLOG SUBCUT SCH ×2 (08:35→12:15)
[2020-01-21] MEDS: ESCITALOPRAM 20 MG PO SCH (08:37)
[2020-01-21] MEDS: LEVEMIR SUBCUT SCH (08:38)
[2020-01-21] MEDS: Sodium Chloride 0.9% 10 ML Syringe FLUSH PRN (08:44)
[2020-01-21] MEDS ORDERED: Sodium Chloride 0.9% 10 ML Syringe FLUSH PRN (09:57)
[2020-01-21] MEDS: Heparin Sodium 5,000 Units/ML Vial SUBCUT SCH (10:22)
--- NOTE | 2020-01-21 12:04 | PCM.DCSUM1 ---
Discharge Summary - Hospital Course Free Text/Narrative:: 50-year-old with a history of hypothyroidism, diabetes, depression. The patient presented to [facility]. She was noted to have about 40 pound weight gain in the past few months. She was noted to have massive edema, shortness of breath with activities. Denies chest pain. She was noted to have hypoglycemia, repeated hypoglycemia treatment was given. The patient was sent to the emergency room acute on chronic diastolic congestive heart failure Could not obtain echocardiogram due to size On CT the patient was noted to have cardiomegaly Continue Massive edema involving lower extremities, trunk Started Lasix had significant weight loss with IV Lasix Continue oral diuretics and potassium supplement Acute hypoxemic, hypercarbic respiratory failure Likely secondary to morbid obesity, fluid overload Prior to discharge on 20 January the patient underwent walking desaturation study With activity oxygen saturation dropped to 85% and remained above 88% on 3 L nasal cannula oxygen Resting oxygen saturation was 84% on room air, 1 L nasal cannula oxygen brought oxygen saturation up to 90% During the night she also required 1 L nasal cannula oxygen The patient would benefit from portable and stationary oxygen Hopefully when fluid status is improving she will not need further oxygen Expected use of oxygen is 1 month Consider sleep apnea evaluation as outpatient Diabetes Hypoglycemia on admission An amp of D50 given in the ER Resumed long-acting insulin Hold metformin, And resume home regimen Hypothyroidism Uncontrolled on admission Increased thyroid medication, increase levothyroxine from 100 to 125 g daily Depression Continue Abilify, bupropion, escitalopram, trazodone Follow up closely with primary care physician and nephrology Diagnosis: Stroke: No - Discharge Data Discharge Date: 01/21/20 Discharge Disposition: Home, Self-Care 01 Condition: Good - Referral to Home Health Primary Care Physician: Dianelys Treviño NP - Discharge Diagnosis/Problem(s) (1) Acute hypercapnic respiratory failure SNOMED Code(s): 940591125 ICD Code: J96.02 - ACUTE RESPIRATORY FAILURE WITH HYPERCAPNIA Status: Acute Current Visit: Yes (2) Diabetes SNOMED Code(s): 35193584 ICD Code: E11.9 - TYPE 2 DIABETES MELLITUS WITHOUT COMPLICATIONS Status: Acute Current Visit: Yes (3) Hypothyroidism SNOMED Code(s): 93052369 ICD Code: E03.9 - HYPOTHYROIDISM, UNSPECIFIED Status: Acute Current Visit: Yes (4) Depression SNOMED Code(s): 64031880 ICD Code: F32.9 - MAJOR DEPRESSIVE DISORDER, SINGLE EPISODE, UNSPECIFIED Status: Acute Current Visit: Yes (5) Morbid obesity SNOMED Code(s): 957728580 ICD Code: E66.01 - MORBID (SEVERE) OBESITY DUE TO EXCESS CALORIES Status: Acute Current Visit: Yes (6) Edema SNOMED Code(s): 750290274, 838253484 ICD Code: R60.9 - EDEMA, UNSPECIFIED Status: Acute Current Visit: No Qualifiers: Edema type: generalized Qualified Code(s): R60.1 - Generalized edema (7) Hypoxia SNOMED Code(s): 054815099 ICD Code: R09.02 - HYPOXEMIA Status: Acute Current Visit: No - Patient Summary/Data Consults: Consultations 01/20/20 09:40 OT Evaluation and Treatment [CONS] Routine PT Evaluation and Treatment [CONS] Routine - Patient Instructions Diet: Heart Healthy Diet, Low Sodium Activity: As Tolerated - Discharge Plan *PRESCRIPTION DRUG MONITORING PROGRAM REVIEWED*: Not Applicable *COPY OF PRESCRIPTION DRUG MONITORING REPORT IN PATIENT ALYSSA: Not Applicable Prescriptions/Med Rec: Potassium Chloride [Klor-Con 10] 40 meq PO WITHBREAKFAST #30 tab.er Furosemide [Lasix] 40 mg PO BID #60 tablet Levothyroxine 125 mcg PO ACBREAKFAST #30 tablet Home Medications: Home Meds ARIPiprazole [Abilify] 15 mg PO DAILY 01/14/20 [History] Albuterol [Proair HFA] 2 puff INH Q4H PRN 01/14/20 [History] Alogliptin Benzoate [Alogliptin] 25 mg PO DAILY 01/14/20 [History] Aspirin [Aspirin EC] 81 mg PO DAILY 01/14/20 [History] Cholecalciferol (Vitamin D3) [Vitamin D3] 25 mcg PO DAILY 01/14/20 [History] Dextrose [Glucose] 4 gm PO ASDIRECTED PRN 01/14/20 [History] Escitalopram Oxalate 20 mg PO DAILY 01/14/20 [History] Gabapentin [Neurontin] 300 mg PO BEDTIME 01/14/20 [History] Insulin Aspart [NovoLOG] 6 units SQ WITHDINNER 01/14/20 [History] Insulin Aspart [NovoLOG] 10 unit WITHBREAKFAST 01/14/20 [History] Insulin Aspart [NovoLOG] 10 units SQ WITHLUNCH 01/14/20 [History] Insulin Detemir [Levemir Flextouch] 15 unit SQ BID 01/14/20 [History] Melatonin 10 mg PO BEDTIME 01/14/20 [History] Pioglitazone [Actos] 30 mg PO BEDTIME 01/14/20 [History] Prazosin HCl [Prazosin] 2 mg PO BEDTIME 01/14/20 [History] Simvastatin 20 mg PO BEDTIME 01/14/20 [History] buPROPion HCL [Bupropion Xl] 150 mg PO DAILY 01/14/20 [History] traZODone HCl [Trazodone HCl] 100 mg PO BEDTIME 01/14/20 [History] Furosemide [Lasix] 40 mg PO BID #60 tablet 01/21/20 [Rx] Levothyroxine 125 mcg PO ACBREAKFAST #30 tablet 01/21/20 [Rx] Potassium Chloride [Klor-Con 10] 40 meq PO WITHBREAKFAST #30 tab.er 01/21/20 [Rx] Oxygen Therapy Mode: Nasal Cannula Oxygen Flow Rate (L/min): 3 (with activity) - Discharge Summary/Plan Comment DC Time >30 min.: No - General Info Date of Service: 01/21/20 - Review of Systems General: Denies: Fever Pulmonary: Reports: Shortness of Breath (improved) Cardiovascular: Reports: Edema. Denies: Chest Pain Gastrointestinal: Denies: Abdominal Pain Genitourinary: Denies: Dysuria Musculoskeletal: Denies: Neck Pain Neurological: Denies: Confusion - Patient Data Vitals - Most Recent: Last Vital Signs Temp 98.5 F 01/21/20 08:00 Pulse 65 01/21/20 08:00 Resp 18 01/21/20 08:00 BP 106/47 L 01/21/20 08:00 Pulse Ox 95 01/21/20 08:00 Weight - Most Recent: 314 lb 2 oz I&O - Last 24 hours: Intake & Output 01/20/20 01/21/20 01/21/20 22:59 06:59 14:59 Intake Total 220 Output Total 300 1300 Balance -80 -1300 Lab Results - Last 24 hrs: Laboratory Results - last 24 hr 01/20/20 01/20/20 01/21/20 Range/Units 16:14 19:51 05:52 Sodium 143 (136-145) mmol/L Potassium 3.7 (3.5-5.1) mmol/L Chloride 98 (98-107) mmol/L Carbon Dioxide 46 H* (21-32) mmol/L Anion Gap 2.7 L (7-13) mEq/L BUN 16 (7-18) mg/dL Creatinine 0.58 (0.55-1.02) mg/dL Est Cr Clr Drug Dosing 91.78 mL/min Estimated GFR (MDRD) > 60 Glucose 150 H (74-99) mg/dL POC Glucose 233 H 261 H (70-105) mg/dl Calcium 8.0 L (8.5-10.1) mg/dL 01/21/20 01/21/20 Range/Units 08:03 11:50 Sodium (136-145) mmol/L Potassium (3.5-5.1) mmol/L Chloride (98-107) mmol/L Carbon Dioxide (21-32) mmol/L Anion Gap (7-13) mEq/L BUN (7-18) mg/dL Creatinine (0.55-1.02) mg/dL Est Cr Clr Drug Dosing mL/min Estimated GFR (MDRD) Glucose (74-99) mg/dL POC Glucose 158 H 209 H (70-105) mg/dl Calcium (8.5-10.1) mg/dL Med Orders - Current: Current Medications Acetaminophen (Tylenol) 650 mg PO Q4H PRN PRN Reason: Pain (Mild 1-3)/fever Aspirin (Halfprin) 81 mg PO DAILY [facility] Last Admin: 01/21/20 08:34 Dose: 81 mg Documented by: Bupropion HCl (Wellbutrin Xl) 150 mg PO DAILY [facility] Last Admin: 01/21/20 08:33 Dose: 150 mg Documented by: Dextrose/Water (Dextrose 50% In Water) 25 ml IVPUSH Q1H PRN PRN Reason: blood sugar <70 Furosemide (Lasix) 40 mg PO BID [facility] Gabapentin (Neurontin) 300 mg PO BEDTIME [facility] Heparin Sodium (Porcine) (Heparin Sodium) 5,000 units SUBCUT BID [facility] Last Admin: 01/21/20 10:22 Dose: Not Given Documented by: Lactulose (Cephulac) 20 gm PO BID PRN PRN Reason: Constipation Last Admin: 01/16/20 18:15 Dose: 20 gm Documented by: Levothyroxine Sodium (Levothyroxine) 125 mcg PO ACBREAKFAST [facility] Last Admin: 01/21/20 05:59 Dose: 125 mcg Documented by: (Aripiprazole [ Abilify] 15 Mg) Own Med* 15 mg PO DAILY [facility] Last Admin: 01/21/20 08:33 Dose: 15 mg Documented by: (Prazosin [Minpress] (1 Mg) Own Med*) 1 mg PO BEDTIME [facility] Last Admin: 01/20/20 20:29 Dose: 1 mg Documented by: Novolog Own Med* 0 each SUBCUT WITHMEALSANDBED [facility]; Protocol Last Admin: 01/21/20 08:35 Dose: 1 each Documented by: Simvastatin 20mg Own (Med*) 0 each PO BEDTIME [facility] Last Admin: 01/20/20 20:28 Dose: 1 each Documented by: Levemir Pen Own Med (*) 0 each SUBCUT BID [facility] Last Admin: 01/21/20 08:38 Dose: 10 each Documented by: Escitalopram 20mg (Own Med*) 0 each PO DAILY [facility] Last Admin: 01/21/20 08:37 Dose: 20 each Documented by: Ondansetron HCl (Zofran Odt) 4 mg PO Q4H PRN PRN Reason: nausea, able to take PO Melatonin 10mg Own (Med*) 0 each PO BEDTIME [facility] Last Admin: 01/20/20 20:29 Dose: 2 each Documented by: Potassium Chloride (Klor-Con 10) 40 meq PO WITHBREAKFAST [facility] Last Admin: 01/21/20 08:31 Dose: 40 meq Documented by: Potassium Chloride (Klor-Con 10) 20 meq PO WITHBREAKFAST [facility] Senna/Docusate Sodium (Senna Plus) 1 tab PO BID [facility] Last Admin: 01/21/20 08:32 Dose: 1 tab Documented by: Sodium Chloride (Saline Flush) 10 ml FLUSH ASDIRECTED PRN PRN Reason: Keep Vein Open Trazodone HCl (Trazodone) 100 mg PO BEDTIME [facility] Discontinued Medications Aspirin (Halfprin) 81 mg PO DAILY [facility] Bupropion HCl (Wellbutrin Xl) 150 mg PO DAILY [facility] Cephalexin (Keflex) 500 mg PO TID [facility] Last Admin: 01/21/20 08:32 Dose: 500 mg Documented by: Dextrose/Water (Dextrose 50% In Water) 50 ml IVPUSH ONETIME ONE Stop: 01/14/20 13:38 Last Admin: 01/14/20 13:43 Dose: 50 ml Documented by: Escitalopram Oxalate (Lexapro) 20 mg PO DAILY [facility] Furosemide (Lasix) 20 mg IVPUSH BIDDIURETIC [facility] Last Admin: 01/15/20 08:29 Dose: 20 mg Documented by: Furosemide (Lasix) 40 mg IVPUSH BIDDIURETIC [facility] Last Admin: 01/16/20 08:27 Dose: 40 mg Documented by: Furosemide (Lasix) 40 mg IVPUSH Q8HR [facility] Last Admin: 01/21/20 06:03 Dose: 40 mg Documented by: Gabapentin (Neurontin) 300 mg PO BEDTIME [facility] Heparin Sodium (Porcine) (Heparin Sodium) 5,000 units SUBCUT Q8HR [facility] Last Admin: 01/20/20 05:49 Dose: Not Given Documented by: Insulin Glargine (Lantus) 30 unit SUBCUT BID [facility] Insulin Glargine (Lantus) 20 unit SUBCUT BID [facility] Insulin Glargine (Lantus) 10 unit SUBCUT BID [facility] Insulin Human Lispro (Humalog) 0 unit SUBCUT WITHMEALSANDBED [facility]; Protocol Last Admin: 01/14/20 18:35 Dose: Not Given Documented by: Iopamidol (Isovue-370 (76%)) 100 ml IVPUSH ONETIME ONE Stop: 01/14/20 13:44 Last Admin: 01/14/20 14:35 Dose: 100 ml Documented by: Melatonin (Melatonin) 10.5 mg PO BEDTIME [facility] Melatonin (Melatonin) 6 mg PO BEDTIME PRN PRN Reason: Sleep Escitalopram 20mg (Own Med) 0 each PO DAILY [facility] Gabapentin 300mg (Own Med*) 0 each PO BEDTIME [facility] Trazodone 100mg Own (Med*) 0 each PO BEDTIME [facility] Last Admin: 01/20/20 20:28 Dose: 1 each Documented by: Gabapentin 300mg (Own Med*) 0 each PO BEDTIME [facility] Last Admin: 01/20/20 20:31 Dose: 300 each Documented by: Simvastatin (Zocor) 20 mg PO BEDTIME [facility] Sodium Chloride (Saline Flush) 10 ml FLUSH ASDIRECTED PRN PRN Reason: Keep Vein Open Last Admin: 01/21/20 08:44 Dose: 10 ml Documented by: Trazodone HCl (Trazodone) 100 mg PO BEDTIME [facility] - Exam General: Reports: Alert, Oriented Neck: Reports: Supple Lungs: Reports: Normal Respiratory Effort, Decreased Breath Sounds Cardiovascular: Reports: Regular Rate, Regular Rhythm GI/Abdominal Exam: Normal Bowel Sounds, Soft, Non-Tender Extremities: Pedal Edema, Other (edema upto trunk) Neurological: Reports: No New Focal Deficit Psy/Mental Status: Reports: Alert, Normal Affect, Normal Mood
[2020-01-21] MEDS ORDERED: Furosemide 40 MG Tab PO SCH (14:00)
[2020-01-21] MEDS ORDERED: traZODone 50 MG Tab PO SCH (21:00)
[2020-01-21] MEDS ORDERED: Gabapentin 300 MG Cap PO SCH (21:00)
[2020-01-22] MEDS ORDERED: Potassium Chloride 10 MEQ Tab.ER PO SCH (08:00)
== END 2020-01-21 15:50 | disposition home or self-care (01) | DRG 291 ==
LOC: DL.ED 12:36 → DL.MS 14:56 → OBSVTOIN 01-15 10:55
PROVIDERS: ADMIT Internal Medicine; ATTEND Internal Medicine
PROC: 5A09457 Assistance with Respiratory Ventilation, 24-96 Consecutive Hours, Continuous Positive Airway Pressure (ICD-10-PCS; principal; 2020-01-15)
DX: I50.9 Heart failure, unspecified (principal); I50.33 Acute on chronic diastolic (congestive) heart failure; J96.01 Acute respiratory failure with hypoxia; J96.02 Acute respiratory failure with hypercapnia; Z68.43 Body mass index [BMI] 50.0-59.9, adult; E66.01 Morbid (severe) obesity due to excess calories; G47.30 Sleep apnea, unspecified; E11.649 Type 2 diabetes mellitus with hypoglycemia without coma; E03.9 Hypothyroidism, unspecified; F32.9 Major depressive disorder, single episode, unspecified; H54.7 Unspecified visual loss; E11.40 Type 2 diabetes mellitus with diabetic neuropathy, unspecified; E78.00 Pure hypercholesterolemia, unspecified; F17.200 Nicotine dependence, unspecified, uncomplicated; J45.909 Unspecified asthma, uncomplicated; G89.29 Other chronic pain; M54.9 Dorsalgia, unspecified; Z79.899 Other long term (current) drug therapy; E11.42 Type 2 diabetes mellitus with diabetic polyneuropathy; F42.9 Obsessive-compulsive disorder, unspecified; G47.00 Insomnia, unspecified; F17.210 Nicotine dependence, cigarettes, uncomplicated; Z79.890 Hormone replacement therapy; Z79.4 Long term (current) use of insulin; Z79.82 Long term (current) use of aspirin
CPT/HCPCS: 36415 ×2; 36600; 71260; 74177; 80048; 80053; 81001; 82803; 82962 ×4; 83880; 84443; 84484; 85025; 85379; 85610; 87086; 87088; 87186; 93005; 94660 ×2; 96374; 99285; A9270 ×11; J1644 ×2; J1940 ×2; Q9967; 83735; 85027; 94618; 96372; 96375; 96376; 97162-GP; 97165-GO; 99284; G0378